=== PATIENT | female | born 1945 | race Caucasian/White ===

== ENCOUNTER 2019-05-27 19:18 | Inpatient (IN) | payer MEDICARE, MEDICAID ==
[~2019-05-27] VITALS: Ht 162.6 cm; Wt 53.1 kg
[~2019-05-27 19:18] MED LIST: ACET325T53 PO; ALLA266C2 TP; ASPI-869 PO; CLOP75TA15 PO; METO25TA20 GT; NITR0.4T SL; OXYC-162 PO; QUET25TA PO; SIMV40TA5 PO; TRAM50TA2 PO; TRIA15CR MC
[2019-05-27 20:00] VITALS: BP 183/87
[2019-05-27] MEDS ORDERED: LORAZEPAM 1 MG TABLET PO PRN (20:00)
[2019-05-27] MEDS ORDERED: MAG HYDROX/AL HYDROX/SIMETH 30 ML UDC PO PRN (20:00)
[2019-05-27] MEDS ORDERED: ACETAMINOPHEN 325 MG TABLET PO PRN (20:00)
[2019-05-27] MEDS ORDERED: TEMAZEPAM 7.5 MG CAPSULE PO PRN (20:00)
[2019-05-27] MEDS ORDERED: MAGNESIUM HYDROXIDE 30 ML UDC PO PRN (20:00)
[2019-05-28] VITALS: BP 151/72
[2019-05-28] MEDS ORDERED: ACETAMINOPHEN 325 MG TABLET PO PRN (01:00)
[2019-05-28] MEDS ORDERED: oxyCODONE/APAP (5/325 MG) 1 UDTAB TABLET PO PRN (01:00)
[2019-05-28 08:00] VITALS: BP 128/56
[2019-05-28] MEDS: METOPROLOL TARTRATE 25 MG TABLET GT SCH ×2 (08:48→20:56)
[2019-05-28] MEDS: ASPIRIN EC 325 MG TABLET.DR PO SCH (08:48)
[2019-05-28] MEDS: CLOPIDOGREL BISULFATE 75 MG TABLET PO SCH (08:49)
[2019-05-28] MEDS: SIMVASTATIN 20 MG TABLET PO SCH (18:00)
[2019-05-28] MEDS: ARIPIPRAZOLE 5 MG TABLET PO SCH (20:57)
[2019-05-29] MEDS: CLOPIDOGREL BISULFATE 75 MG TABLET PO SCH (09:00)
[2019-05-29] MEDS: METOPROLOL TARTRATE 25 MG TABLET GT SCH ×2 (09:00→21:00)
[2019-05-29] MEDS: ASPIRIN EC 325 MG TABLET.DR PO SCH (09:00)
[2019-05-29] MEDS ORDERED: Z GUARD REMEDY 2 OZ OINT TP PRN (10:30)
[2019-05-29] MEDS: Z GUARD REMEDY 2 OZ OINT TP SCH (14:20)
[2019-05-29 16:00] VITALS: BP 119/55
[2019-05-29] MEDS: CLOTRIMAZOLE 1% 15 GM TUBE TP SCH (17:00)
[2019-05-29] MEDS: SIMVASTATIN 20 MG TABLET PO SCH (17:36)
[2019-05-29] MEDS: ARIPIPRAZOLE 5 MG TABLET PO SCH (21:45)
[2019-05-30] MEDS: Z GUARD REMEDY 2 OZ OINT TP SCH (08:21)
[2019-05-30] MEDS: CLOTRIMAZOLE 1% 15 GM TUBE TP SCH ×3 (08:22→16:23)
[2019-05-30] MEDS: CLOPIDOGREL BISULFATE 75 MG TABLET PO SCH (08:24)
[2019-05-30] MEDS: METOPROLOL TARTRATE 25 MG TABLET GT SCH ×2 (08:24→21:00)
[2019-05-30] MEDS: ASPIRIN EC 325 MG TABLET.DR PO SCH (08:24)
[2019-05-30 15:13] VITALS: BP 187/76
[2019-05-30] MEDS ORDERED: CLONIDINE HCL 0.3 MG/24H PTWK 1 EA PATCH TD SCH (15:30)
[2019-05-30 16:20] VITALS: BP 187/76
[2019-05-30] MEDS: SIMVASTATIN 20 MG TABLET PO SCH (17:58)
[2019-05-30] MEDS: ARIPIPRAZOLE 5 MG TABLET PO SCH (22:00)
[2019-05-31] MEDS: ASPIRIN EC 325 MG TABLET.DR PO SCH (09:00)
[2019-05-31] MEDS: METOPROLOL TARTRATE 25 MG TABLET GT SCH ×2 (09:00→20:47)
[2019-05-31] MEDS: CLOTRIMAZOLE 1% 15 GM TUBE TP SCH ×3 (09:00→17:00)
[2019-05-31] MEDS: Z GUARD REMEDY 2 OZ OINT TP SCH (09:00)
[2019-05-31] MEDS: CLOPIDOGREL BISULFATE 75 MG TABLET PO SCH (09:00)
[2019-05-31] MEDS: SIMVASTATIN 20 MG TABLET PO SCH (17:30)
[2019-05-31 19:55] VITALS: BP 118/61
[2019-05-31] MEDS: ARIPIPRAZOLE 5 MG TABLET PO SCH (21:45)
[2019-06-01] MEDS: Z GUARD REMEDY 2 OZ OINT TP SCH (08:31)
[2019-06-01] MEDS: ASPIRIN EC 325 MG TABLET.DR PO SCH (08:31)
[2019-06-01] MEDS: CLOTRIMAZOLE 1% 15 GM TUBE TP SCH ×3 (08:31→16:16)
[2019-06-01] MEDS: CLOPIDOGREL BISULFATE 75 MG TABLET PO SCH (08:31)
[2019-06-01] MEDS: METOPROLOL TARTRATE 25 MG TABLET GT SCH ×2 (08:31→21:00)
[2019-06-01] MEDS: SIMVASTATIN 20 MG TABLET PO SCH (17:20)
[2019-06-01] MEDS: ARIPIPRAZOLE 5 MG TABLET PO SCH (21:19)
[2019-06-02] MEDS: METOPROLOL TARTRATE 25 MG TABLET GT SCH (09:00)
[2019-06-02] MEDS: ASPIRIN EC 325 MG TABLET.DR PO SCH (09:00)
[2019-06-02] MEDS: CLOPIDOGREL BISULFATE 75 MG TABLET PO SCH (09:00)
[2019-06-02] MEDS: CLOTRIMAZOLE 1% 15 GM TUBE TP SCH ×2 (09:32→09:33)
[2019-06-02] MEDS: Z GUARD REMEDY 2 OZ OINT TP SCH (09:33)
== END 2019-06-02 13:15 | disposition home or self-care (01) | DRG 885 ==
LOC: GPS 19:25
PROVIDERS: ADMIT Psychiatry & Neurology Psychosomatic Medicine; ATTEND Student in an Organized Health Care Education/Training Program
DX: F25.0 Schizoaffective disorder, bipolar type (principal); F01.50 Vascular dementia, unspecified severity, without behavioral disturbance, psychotic disturbance, mood disturbance, and anxiety; D84.9 Immunodeficiency, unspecified; F29 Unspecified psychosis not due to a substance or known physiological condition; F41.9 Anxiety disorder, unspecified; Z88.1 Allergy status to other antibiotic agents; Z88.2 Allergy status to sulfonamides; I10 Essential (primary) hypertension; E78.5 Hyperlipidemia, unspecified; I25.2 Old myocardial infarction; Z91.14 Patient's other noncompliance with medication regimen; B35.3 Tinea pedis; B35.1 Tinea unguium
CPT/HCPCS: 97116-TC; 97530-TC

== ENCOUNTER 2019-06-02 15:41 | Emergency (ER) | payer MEDICARE, MEDICAID ==
[~2019-06-02] VITALS: Ht 162.6 cm; Wt 53.1 kg
[2019-06-02 15:41] VITALS: BP 135/77
--- NOTE | 2019-06-02 15:58 | NUR ---
PATIENT RESTING INSIDE ROOM. AWAKE, ALERT AND ORIENTED X 3, NO ACUTE DISTRESS. DENIES ANY PAIN OR DISCOMFORT. PATIENT AMBULATORY. RESTING COMFORTABLY ON BED
[2019-06-02 16:19] LABS: BASOPHILS # (AUTO) 0.1 /CMM (0.0-0.2); BASOPHILS % (AUTO) 0.7 % (0.0-2.0); EOSINOPHILS % (AUTO) 1.4 % (0.0-6.0); HEMATOCRIT 40 % (33-45); LYMPHOCYTES # (AUTO) 1.8 /CMM (0.8-4.8); LYMPHOCYTES % (AUTO) 15.6 % (20.0-44.0); MEAN CORPUSCULAR HGB CONC 32 g/dl (31.0-36.0); MEAN CORPUSCULAR VOLUME 86 fL (82-100); MONOCYTES # (AUTO) 0.6 /CMM (0.1-1.30); MONOCYTES % (AUTO) 5.4 % (2.0-12.0); NEUTROPHILS # (AUTO) 8.9 /CMM (1.8-8.9); NEUTROPHILS % (AUTO) 76.9 % (43.0-81.0); PLATELET COUNT (AUTO) 358 /CMM (150-450); RED BLOOD CELL COUNT(AUTO) 4.69 MIL/uL (4.0-5.2); WHITE BLOOD COUNT (AUTO) 11.6 K/uL (4.3-11.0)
[2019-06-02 16:25] LABS: CALCIUM, SERUM 9.2 mg/dL (8.5-10.1); CARBON DIOXIDE 30 mmol/L (21-32); CHLORIDE 105 mmol/L (98-107); CREATININE 1.2 mg/dL (0.6-1.3); GLUCOSE 161 mg/dL (74-106); POTASSIUM 4.2 mmol/L (3.5-5.1); SODIUM SERUM 143 mmol/L (136-145); UREA NITROGEN, BLOOD 40 mg/dL (7-18)
[2019-06-02 16:28] LABS: APPEARANCE,URINE Slightly Cloudy (CLEAR); BILIRUBIN,URINE Negative (NEGATIVE); BLOOD, URINE Negative Ery/uL (NEGATIVE); COLOR,URINE Yellow (YELLOW); KETONES,URINE Negative (NEGATIVE); LEUKOCYTE ESTERASE ,URINE Small (NEGATIVE); NITRITE, URINE Negative (NEGATIVE); PH,URINE 6.5 (5.0-8.0); PROTEIN,URINE 30 mg/dl (NEGATIVE); UGLUCOSE Negative (NEGATIVE); UROBILINOGEN,URINE 0.2 EU/dL (0.2)
[2019-06-02 16:31] LABS: ALANINE AMINOTRANSFERASE 41 U/L (12-78); ALBUMIN 3.8 g/dL (3.4-5.0); ALCOHOL, BLOOD < 3 mg/dL (0-0); ALKALINE PHOSPHATASE 115 U/L (46-116); ASPARTATE AMINOTRANSFERASE 24 U/L (15-37); BILIRUBIN,DIRECT 0.1 mg/dL (0.0-0.2); BILIRUBIN,TOTAL 0.4 mg/dL (0.2-1.0); TOTAL PROTEIN, SERUM 7.5 g/dL (6.4-8.2)
[2019-06-02 16:32] LABS: ACETAMINOPHEN 0 ug/ml (10-30); SALICYLATE 1.7 mg/dL (2.8-20.0)
[2019-06-02 16:44] LABS: BACTERIA,URINE Moderate /HPF (None Seen); RBC,URINE 0-2 /HPF (0-2); SQUAMOUS EPITHELIAL CELL,UR Many /HPF (None Seen)
--- NOTE | 2019-06-02 17:01 | NUR ---
ENCINO TRANSFER INFO:DIRECT ADMIT TO GPS ROOM 141-B, NUMBER FOR REPORT [phone]
--- NOTE | 2019-06-02 18:35 | NUR ---
PLACED CALL TO [facility] AND SPOKE WITH PAOLA PEREZ AND GAVE REPORT
--- NOTE | 2019-06-02 18:38 | NUR ---
PATIENT RESTING INSIDE ROOM. AWAKE, ALERT AND ORIENTED, AMBULATORY, NO ACUTE DISTRESS. DENIES ANY PAIN OR DISCOMFORT. WILL CONTINUE TO MONITOR
--- NOTE | 2019-06-02 19:23 | NUR ---
REPORT GIVEN TO VALERIE PEREZ FOR KEE
--- NOTE | 2019-06-02 19:28 | NUR ---
PT REFUSED EKG.
--- NOTE | 2019-06-02 19:52 | NUR ---
report given to EMT. Pt being transfered to [facility]. Rm 141
--- NOTE | 2019-06-02 19:52 | NUR ---
ekg not done. pt refused.
== END 2019-06-02 19:59 ==
LOC: ER 15:41
DX: R45.1 Restlessness and agitation (principal); F29 Unspecified psychosis not due to a substance or known physiological condition; I10 Essential (primary) hypertension; E11.9 Type 2 diabetes mellitus without complications; Z90.89 Acquired absence of other organs; Z79.82 Long term (current) use of aspirin; Z88.2 Allergy status to sulfonamides; Z88.1 Allergy status to other antibiotic agents
CPT/HCPCS: 36415; 80048; 80076; 80307; 81001; 85025; 87086; 93005; 99285; G0480; 80305; 81000-TC

== ENCOUNTER 2019-06-19 12:59 | Emergency (ER) | payer MEDICARE, MEDICAID ==
[~2019-06-19] VITALS: Ht 160 cm; Wt 56.7 kg
--- NOTE | 2019-06-19 13:10 | NUR ---
BAILEE FROM THE STREET C/O R ARM PAIN, PT JUST GOT DISCHARGED AT [facility]. STATES SHE IS UNABLE TO MOVE ARM, PAIN IS 6/10. TO ER BED 7, COMFORTABLE AND READY FOR EVAL.
--- NOTE | 2019-06-19 14:12 | NUR ---
PT GIVEN SANDWICH AND JUICE. OK PER VIDEO GAME CREATOR
--- NOTE | 2019-06-19 14:27 | NUR ---
ELODIA LAGUNAS AT BEDSIDE FOR EVAL
--- NOTE | 2019-06-19 14:45 | NUR ---
Social service consult requested by doctor for homelessness. Pt. is a 74 year old female who came to [facility] complaining of nontraumatic right arm pain for an unknown amount of time. She states she was discharged from [facility] and placed in a local motel but was unwilling to stay there, so she called 911. ELOIDA along with case technician Liana and RN Rolan met with pt. bedside. Pt. is alert and oriented x 4. Pt. appears disheveled. Pt. had her belongings with her. Pt. is ambulatory. Pt. stated she wants to go back to [facility]. SW informed pt. that she is here at [facility] and will not be able to be discharged or sent back to [facility] since she is being provided care here. Pt. understood. Pt. has three checks worth $900 with her. SW offered pt. independent living placement. Initially, pt. declined, however later accepted when SW informed her she can try to find her in [place] as per her request. income tax manager Liana spoke with Yen at [facility] independent living and pt. was accepted to go to [address] [place] [address], in [facility] [address]. SW updated pt. about the independent living and pt. accepted to be discharged there. Pt. has extensive psychiatric history and hospitalizations. However, currently pt. denies suicidal/homicidal ideation, and auditory and visual hallucinations. Pt. denies alcohol/drug/tobacco use. Pt. to be discharged to [address] [place] [address] [address] [facility] [address] via taxi. Homeless Patient Waiver form was signed by the pt. Pt. refused all other homeless resources. .
--- NOTE | 2019-06-19 14:51 | NUR ---
Patient discharged to home in stable condition. Written and verbal after care instructions given. Patient verbalizes understanding of instruction. AWAITING TAXI VOUCHER
--- NOTE | 2019-06-19 14:57 | NUR ---
OFFERED FOR PT TO WAIT IN WAITING ROOM FOR VOUCHER. PT ACCEPTED
[2019-06-19 15:13] VITALS: BP 143/86
== END 2019-06-19 15:15 | disposition home or self-care (01) ==
LOC: ER 13:00
DX: S40.021A Contusion of right upper arm, initial encounter (principal); I10 Essential (primary) hypertension; E11.9 Type 2 diabetes mellitus without complications; Z90.89 Acquired absence of other organs; Z88.2 Allergy status to sulfonamides; Z88.1 Allergy status to other antibiotic agents; Z79.899 Other long term (current) drug therapy; Z79.82 Long term (current) use of aspirin; X58.XXXA Exposure to other specified factors, initial encounter; Y93.89 Activity, other specified; Y92.89 Other specified places as the place of occurrence of the external cause; Y99.8 Other external cause status
CPT/HCPCS: 73060-TC

== ENCOUNTER 2019-07-17 07:27 | Emergency (ER) | payer MEDICARE, MEDICAID ==
[~2019-07-17] VITALS: Ht 167.6 cm; Wt 57.2 kg
--- NOTE | 2019-07-17 07:37 | NUR ---
MARKEL CASTELLANOS878 From Bus Bench "Walker rolled on side -Fall hurt R side/hip/leg. AA/OX3, BREATHING EVEN AND UNLABORED, NO SOB NOTED. KEPT COMFORTABLE. ATTACHED TO THE MONITOR, CHANGED INTO GOWN. NEEDS ATTENDED, WILL MONITOR. WAITING FOR MD SCHOFIELD.
--- NOTE | 2019-07-17 08:41 | NUR ---
SEEN BY TOBACCO SORTER JANNETH.
--- NOTE | 2019-07-17 09:41 | NUR ---
Social service consult requested by Dr. Mars for homelessness. Pt. is a 74 year old female who was brought to [facility] for ground level fall. SW met with pt. bedside. Pt. is alert and oriented x 4. SW is familiar with pt. from previous ED visit. P's mood is congruent. Pt. is pleasant and cooperative with SW during the assessment. Pt. has a history of Bipolar Disorder and has a history of psychiatric hospitalizations. Pt. states she is homeless by choice. Pt. usually stays in motels but refuses placement in a Board and Care facility or half-way. SW offered pt. placement, however pt. declined stating she prefers to be on the streets and sleeps on the bus because " they run all night." Pt. receives over $1000/ month of SSI and has approximately over $1000 in checks with her. Pt. is refusing to go to a motel as well. Pt. states she is able to manage herself on the streets. Pt. states she eats at [employer] and cleans herself by using the sink in bathrooms. Pt. denies any suicidal and homicidal ideations and visual/auditory hallucinations at this time. Pt. ambulates with a walker. Pt. will be provided with a TAP card. Homeless Patient waiver form was signed by the pt. and placed in pt's chart. No other social service needs are requested at this time. Dr. Mars has been updated with pt's discharge plan.
--- NOTE | 2019-07-17 09:58 | NUR ---
Patient given written and verbal discharge instructions. Patient verbalizes understanding of instructions. Patient is ambulatory with steady gait. Refuses offer of senior living placement. Patient given list of available shelters in surrounding area. Patient ambulatory with walker. Denies pain or discomfort.
--- NOTE | 2019-07-17 09:59 | NUR ---
Patient has clothes, given snacks and a tap card.
[2019-07-17 10:00] VITALS: BP 138/78
== END 2019-07-17 10:01 | disposition home or self-care (01) ==
LOC: ER 07:30
DX: S70.01XA Contusion of right hip, initial encounter (principal); S80.01XA Contusion of right knee, initial encounter; I10 Essential (primary) hypertension; E11.9 Type 2 diabetes mellitus without complications; F29 Unspecified psychosis not due to a substance or known physiological condition; F31.9 Bipolar disorder, unspecified; R45.1 Restlessness and agitation; R32 Unspecified urinary incontinence; Z90.89 Acquired absence of other organs; Z59.0 Homelessness; Z88.2 Allergy status to sulfonamides; Z79.82 Long term (current) use of aspirin; Z88.1 Allergy status to other antibiotic agents; W18.39XA Other fall on same level, initial encounter; Y93.89 Activity, other specified; Y92.89 Other specified places as the place of occurrence of the external cause; Y99.8 Other external cause status
CPT/HCPCS: 73502; 73564-TC

== ENCOUNTER 2019-10-30 18:36 | Emergency (ER) | payer MEDICAID, MEDICARE ==
[~2019-10-30] VITALS: Ht 162.6 cm; Wt 56.7 kg
[~2019-10-30 18:36] MED LIST changes: +SIMV-49 PO; -SIMV40TA5 PO
--- NOTE | 2019-10-30 18:43 | NUR ---
BIB RA 878 IN A SITTING POSITION FROM A BUS STOP BENCH, C/O CHRONIC R LEG PAIN, WORSE TODAY, PT ON MONITOR, VSS ,NAD NOTED, PENDING MD SCHOFIELD
[2019-10-30] MEDS ORDERED: PIPERACILLIN /TAZOBACTAM 3.375 G in IV D5W 50 ML IV ONE (20:30)
[2019-10-30] MEDS ORDERED: VANCOMYCIN 1 GM in IV D5W 250 ML IV ONE (20:30)
[2019-10-30 20:31] LABS: BASOPHILS # (AUTO) 0.1 /CMM (0.0-0.2); BASOPHILS % (AUTO) 1.2 % (0.0-2.0); EOSINOPHILS % (AUTO) 1.6 % (0.0-6.0); HEMATOCRIT 37 % (33-45); HEMOGLOBIN 12.2 g/dL (11.5-14.8); LYMPHOCYTES # (AUTO) 2.2 /CMM (0.8-4.8); LYMPHOCYTES % (AUTO) 21.2 % (20.0-44.0); MEAN CORPUSCULAR HGB CONC 33 g/dl (31.0-36.0); MEAN CORPUSCULAR VOLUME 87 fL (82-100); MONOCYTES # (AUTO) 0.7 /CMM (0.1-1.30); MONOCYTES % (AUTO) 6.9 % (2.0-12.0); NEUTROPHILS # (AUTO) 7.3 /CMM (1.8-8.9); NEUTROPHILS % (AUTO) 69.1 % (43.0-81.0); PLATELET COUNT (AUTO) 357 /CMM (150-450); WHITE BLOOD COUNT (AUTO) 10.6 K/uL (4.3-11.0)
--- NOTE | 2019-10-30 20:33 | NUR ---
CALLED FOR MS BED
[2019-10-30 20:48] LABS: CALCIUM, SERUM 8.9 mg/dL (8.5-10.1); CREATININE 1.2 mg/dL (0.6-1.3); POTASSIUM 3.7 mmol/L (3.5-5.1)
--- NOTE | 2019-10-30 21:07 | NUR ---
BED 306-2 MS
--- NOTE | 2019-10-30 21:13 | NUR ---
PT REFUSED ALL TREATMET, ELIZABETH GARCIA AWARE.
[2019-10-30] MEDS ORDERED: IV NS 0.9% 1,000 ML BAG IV ONE (21:30)
[2019-10-30 22:01] VITALS: BP 132/75
--- NOTE | 2019-10-30 23:38 | NUR ---
Patient does not wish to proceed with medical care recommended by Michael GARCIA Patient given information related to possible complications, up to and including , which could occur as a result of leaving the hospital at this time. Patient verbalizes understanding of risks involved due to leaving against medical advice. Patient has signed AMA form. Patient given written and verbal discharge instructions. Patient verbalizes understanding of instructions. Patient is ambulatory with steady gait. Refuses offer of correction placement. Patient given list of available shelters in surrounding area.
[2019-10-31] MEDS ORDERED: PIPERACILLIN /TAZOBACTAM 4.5 G in IV D5W 50 ML IV SCH ×2
== END 2019-10-30 23:40 | disposition left against medical advice (07) ==
LOC: ER 18:41 → MED 21:06 → UNDOADMIN 21:06
DX: L03.116 Cellulitis of left lower limb (principal); L03.115 Cellulitis of right lower limb; B35.3 Tinea pedis; B35.1 Tinea unguium; I10 Essential (primary) hypertension; E11.9 Type 2 diabetes mellitus without complications; Z59.0 Homelessness; Z90.89 Acquired absence of other organs; Z88.2 Allergy status to sulfonamides; Z88.1 Allergy status to other antibiotic agents; Z60.2 Problems related to living alone; Z79.899 Other long term (current) drug therapy; Z79.82 Long term (current) use of aspirin
CPT/HCPCS: 36415; 80048; 85025; 99283; J2543; J7060; G0378

== ENCOUNTER 2020-02-09 12:26 | Inpatient (IN) | payer MEDICARE, OTHER ==
[~2020-02-09] VITALS: Ht 162.6 cm; Wt 57.2 kg
--- NOTE | 2020-02-09 12:38 | NUR ---
[id number] [facility] C/O R FOOT PAIN FOR "MONTHS". REPORTS PAIN LEVEL 6/10. PREVIOUSLY TREATED WITH ANTIBIOTIC AT [facility] FOR 2 DAYS. AMB WITH WALKER. PT IS CALM AND COOPERATIVE. STATES SHE IS "BLIND", BUT ABLE TO SEE CLOSE UP. ON MONITOR, MADE COMFORTABLE, READY FOR EVAL.
--- NOTE | 2020-02-09 12:41 | NUR ---
DR SALDAÑA AT BEDSIDE FOR EVAL.
[2020-02-09] MEDS ORDERED: VANCOMYCIN 1 GM VIAL ONE (12:48)
[2020-02-09] MEDS ORDERED: VANCOMYCIN HCL 1 GM in IV D5W 260 ML IV ONE (13:00)
[2020-02-09 13:26] LABS: BASOPHILS # (AUTO) 0.1 /CMM (0.0-0.2); BASOPHILS % (AUTO) 1.2 % (0.0-2.0); EOSINOPHILS % (AUTO) 1.7 % (0.0-6.0); HEMATOCRIT 38 % (33-45); HEMOGLOBIN 12.5 g/dL (11.5-14.8); LYMPHOCYTES # (AUTO) 1.9 /CMM (0.8-4.8); MEAN CORPUSCULAR HGB CONC 33 g/dl (31.0-36.0); MEAN CORPUSCULAR VOLUME 87 fL (82-100); MONOCYTES # (AUTO) 0.5 /CMM (0.1-1.30); MONOCYTES % (AUTO) 6.4 % (2.0-12.0); NEUTROPHILS # (AUTO) 5.8 /CMM (1.8-8.9); NEUTROPHILS % (AUTO) 68.7 % (43.0-81.0); PLATELET COUNT (AUTO) 339 /CMM (150-450); WHITE BLOOD COUNT (AUTO) 8.5 K/uL (4.3-11.0)
--- NOTE | 2020-02-09 13:27 | NUR ---
URINE COLLECTED AND SENT TO STAT LAB
--- NOTE | 2020-02-09 13:30 | NUR ---
TECH AND FABRIC NORMALIZER AT BEDSIDE TO CLEAN PT
[2020-02-09 13:33] LABS: APPEARANCE,URINE Clear (CLEAR); BILIRUBIN,URINE Negative (NEGATIVE); BLOOD, URINE Trace-lysed Ery/uL (NEGATIVE); COLOR,URINE Yellow (YELLOW); KETONES,URINE Negative (NEGATIVE); LEUKOCYTE ESTERASE ,URINE Small (NEGATIVE); NITRITE, URINE Positive (NEGATIVE); PROTEIN,URINE Trace mg/dl (NEGATIVE); UGLUCOSE Negative (NEGATIVE); UROBILINOGEN,URINE 0.2 EU/dL (0.2)
[2020-02-09 13:35] LABS: CALCIUM, SERUM 8.8 mg/dL (8.5-10.1)
[2020-02-09 13:38] LABS: BACTERIA,URINE 2+ /HPF (None Seen); RBC,URINE 0-2 /HPF (0-2); SQUAMOUS EPITHELIAL CELL,UR Few /HPF (None Seen)
--- NOTE | 2020-02-09 13:39 | NUR ---
PT EXPERIENCED REDNESS AND ITCHING AFTER START OF ANTIBIOTIC. MD NOTIFIED.
--- NOTE | 2020-02-09 13:41 | NUR ---
PER MD VERBAL ORDER, ADJUSTED MED RATE TO 100ML/HR. PT PEDRO WELL.
[2020-02-09 13:43] LABS: ALBUMIN 3.5 g/dL (3.4-5.0); BILIRUBIN,DIRECT 0.1 mg/dL (0.0-0.2); BILIRUBIN,TOTAL 0.3 mg/dL (0.2-1.0); TOTAL PROTEIN, SERUM 7.4 g/dL (6.4-8.2)
--- NOTE | 2020-02-09 14:15 | NUR ---
PT ASLEEP IN BED. EASILY AROUSED, VSS. WILL CONT TO MONITOR.
--- NOTE | 2020-02-09 14:48 | NUR ---
REPORT GIVEN TO CHRIS LEON FOR 306-2 MS
--- NOTE | 2020-02-09 15:14 | NUR ---
PT [facility]SF[facility]
[2020-02-09] MEDS ORDERED: IV NS 0.9% 1,000 ML IV PRN (15:43)
[2020-02-09 16:00] VITALS: BP 144/79
[2020-02-09] MEDS ORDERED: Z GUARD REMEDY 2 OZ OINT TP PRN (16:00)
[2020-02-09] MEDS ORDERED: ACETAMINOPHEN 325 MG TABLET PO PRN (16:00)
[2020-02-09] MEDS ORDERED: ZOLPIDEM TARTRATE 5 MG TABLET PO PRN (16:00)
[2020-02-09] MEDS ORDERED: HYDROCODONE/APAP 5/325MG 1 EACH TABLET PO PRN (16:00)
[2020-02-09] MEDS ORDERED: MAG HYDROX/AL HYDROX/SIMETH 30 ML UDC PO PRN (16:00)
[2020-02-09] MEDS ORDERED: MAGNESIUM HYDROXIDE 30 ML UDC PO PRN (16:00)
[2020-02-09] MEDS ORDERED: ONDANSETRON HCL/PF 4 MG/2 ML VIAL IVP PRN (16:00)
--- NOTE | 2020-02-09 16:00 | NUR ---
ms rn admitted a new admission, 75 year od female, came in w/ dx of left foot cellulitis, awake,alert,oriented x4,not in any form of distress, respirations even and unlabored,no sob noted, lungs are diminish, abdomen soft,positive bowel sounds,denies pain at this time,all needs attended.will monitor patient.
[2020-02-09] MEDS ORDERED: FEE PK DOSING 1 MIN EA MC ONE (16:25)
--- NOTE | 2020-02-09 18:00 | NUR ---
ms rn asessment done patient refused to take picture at the groin area, all needs attended.
--- NOTE | 2020-02-09 19:15 | NUR ---
RN Notes Patient awake, alert and oriented x3, on room air and tolerated well. Per patient she is blind, able to see close up. Right foot redness with maceration between the toes noted, pain at tolerable level at this time 4/10. Both lower extremity elevated on pillows. Sacral redness and perineal redness noted, patient refused photos to be taken. IV access on right hand patent and intact. Plan of care and fall prevention discussed with the patient and verbalized understanding. Safety measures in place with call light within reach. Will continue to monitor.
[2020-02-09 19:22] VITALS: BP 133/69
[2020-02-09 20:32] VITALS: BP 160/70
--- NOTE | 2020-02-10 05:56 | NUR ---
RN Notes Patient stable overnight, afebrile. Denies any pain and discomfort. Patient refused for IVF and declined pain medication, she just want the IV ATB for her right foot. Fall precaution observed. All needs attended. Will endorsed accordingly.
[2020-02-10 06:34] LABS: BASOPHILS # (AUTO) 0.1 /CMM (0.0-0.2); BASOPHILS % (AUTO) 0.8 % (0.0-2.0); EOSINOPHILS % (AUTO) 3.4 % (0.0-6.0); HEMATOCRIT 35 % (33-45); HEMOGLOBIN 11.8 g/dL (11.5-14.8); LYMPHOCYTES # (AUTO) 1.8 /CMM (0.8-4.8); LYMPHOCYTES % (AUTO) 25.6 % (20.0-44.0); MEAN CORPUSCULAR HGB CONC 34 g/dl (31.0-36.0); MEAN CORPUSCULAR VOLUME 86 fL (82-100); MONOCYTES # (AUTO) 0.5 /CMM (0.1-1.30); MONOCYTES % (AUTO) 6.6 % (2.0-12.0); NEUTROPHILS # (AUTO) 4.5 /CMM (1.8-8.9); NEUTROPHILS % (AUTO) 63.6 % (43.0-81.0); PLATELET COUNT (AUTO) 311 /CMM (150-450); RED BLOOD CELL COUNT(AUTO) 4.09 MIL/uL (4.0-5.2); WHITE BLOOD COUNT (AUTO) 7.2 K/uL (4.3-11.0)
[2020-02-10 07:05] LABS: ALBUMIN 3.1 g/dL (3.4-5.0); BILIRUBIN,TOTAL 0.3 mg/dL (0.2-1.0); CALCIUM, SERUM 8.4 mg/dL (8.5-10.1); CREATININE 1.2 mg/dL (0.6-1.3); TOTAL PROTEIN, SERUM 6.3 g/dL (6.4-8.2)
--- NOTE | 2020-02-10 07:20 | NUR ---
RN OPENING NOTE PT WAS RECEIVED IN BED AT LOWEST AND LOCKED POSITION WITH SIDE RAILS UP X2, A/O X3 NOTED TO BE LEGALLY BLIND BUT ABLE TO SEE CLOSE UP, BREATHING EVEN AND UNLABORED ON RA WITH NO S/S OF ANY DISTRESS OR PAIN NOTED AT THIS TIME, PER NIGHT RN PT REFUSED IVF AND PAIN MEDS, DIAPER IN PLACE, NOTED TO BE AMBULATORY WITH FWW, IV IS PATENT AND INTACT, AWAITING PSYCH AND PODIATRY CONSULT, SAFETY PRECAUTIONS IN PLACE, CALL LIGHT IN REACH, WILL MONITOR ACCORDINGLY
[2020-02-10 08:00] VITALS: BP 143/59
--- NOTE | 2020-02-10 10:00 | NUR ---
WOUND CARE CONSULT: PT PRESENTS WITH CRUSTED WOUNDS TO RT DORSAL FOOT AND GREAT TOE, PRESENT ON ADMISSION. RECOMMEND DPM CONSULT. DR PALOMINO NOTIFIED OF CONSULT REQUEST. PT IS INDEPENDENT WITH BED MOBILITY BUT IS INCONTINENT. DISCUSSED SKIN PROTECTION WITH NURSING STAFF. WILL SEE PRN. SEVERINO IN AGREEMENT WITH PLAN OF CARE. Addendum: 02/10/20 at 1002 by SARAH SHEN WNDNU Amended: Links added.
--- NOTE | 2020-02-10 10:08 | NUR ---
RN NOTE INFORMED BY WOUND CARE NURSE SARAH THAT WAS NOTIFIED OF CONSULT REQUEST AT THIS TIME
[2020-02-10] MEDS: VANCOMYCIN 1 GM in IV D5W 250 ML IV SCH (12:02)
--- NOTE | 2020-02-10 12:50 | NUR ---
RN NOTE PER PT REFUSED TO TALK TO HIM AND REFUSED PSYCH CONSULT AT THIS TIME
[2020-02-10 16:00] VITALS: BP 130/69
--- NOTE | 2020-02-10 18:24 | NUR ---
RN CLOSING NOTE PT IN BED AT LOWEST AND LOCKED POSITION WITH SIDE RAILS UP X2, A/O X3, BREATHING EVEN AND UNLABORED ON RA WITH NO DISTRESS OR PAIN NOTED THIS TIME, AMBULATORY WITH FWW, IV IS PATENT AND INTACT, AWAITING PODIATRY CONSULT, SAFETY PRECAUTIONS IN PLACE, CALL LIGHT IN REACH, ALL NEEDS ATTENDED TO, WILL ENDORSE TO NIGHT RN FOR KEE.
[2020-02-10 19:30] VITALS: BP 138/75
--- NOTE | 2020-02-10 19:36 | NUR ---
MS RN NOTES PATIENT IN SITTING EDGE OF BED, AWAKE, ALERT AND ORIENTED X 3. PATIENT APPEARS ANXIOUS. BREATHING EVEN AND UNLABORED ON ROOM AIR. SHOWS NO SIGNS OF ACUTE RESPIRATORY DISTRESS, NO ACUTE PAIN. IV ON R HAND 20G SHOWS NO SIGNS OF INFILTRATION, NO REDNESS. ITS CLEAN DRY AND INTACT. SAFETY PRECAUTIONS IN PLACE. BED IN LOWEST POSITION, LOCKED, AND CALL LIGHT KEPT WITHIN REACH. WILL CONTINUE TO MONITOR.
[2020-02-10 20:00] VITALS: BP 138/75
--- NOTE | 2020-02-10 20:56 | NUR ---
PATIENT REFUSED TO DO ARTERIAL LOWER EXT AND DUPEX VENOUS LOWER EXT. SHE SAID SHE HAVE DONE THESE TESTES 6 WEEKS AGO IN ANOTHER HOSPITAL. CHARGE NURSE TAMICA IS AWARE.
[2020-02-11 06:41] LABS: CALCIUM, SERUM 8.6 mg/dL (8.5-10.1); CREATININE 1.2 mg/dL (0.6-1.3)
--- NOTE | 2020-02-11 06:41 | NUR ---
MS RN NOTES PATIENT IN BED, ASLEEP, ALERT AND ORIENTED X 3. BREATHING EVEN AND UNLABORED ON ROOM AIR. SHOWS NO SIGNS OF ACUTE RESPIRATORY DISTRESS, NO ACUTE PAIN. IV ON R HAND 20G SHOWS NO SIGNS OF INFILTRATION, NO REDNESS. ITS CLEAN DRY AND INTACT. ALL DUE MEDICATIONS GIVEN. SAFETY PRECAUTIONS IN PLACE. BED IN LOWEST POSITION, LOCKED, AND CALL LIGHT KEPT WITHIN REACH. WILL ENDORSE TO ONCOMING NURSE.
--- NOTE | 2020-02-11 07:44 | NUR ---
rn opening notes Patient received on room air, no sob noted, patient denies pain at this time. regular diet at this time with R hand 20 gauge. patient refused x ray this AM, per report patient have been refusing a lot of procedures. Bed at the lowest setting, call light within reach, side rails up x2.
[2020-02-11] MEDS: CADEXOMER IODINE 40 GM TUBE TP SCH (08:23)
[2020-02-11 09:00] VITALS: BP 135/60
--- NOTE | 2020-02-11 10:24 | NUR ---
NET FRONT END DEVELOPER RIGHT FOOT WOUND TREATMENT ORDERS CLARIFIED WITH DPM. DISCUSSED WITH NURSING STAFF.
[2020-02-11] MEDS: DAKINS QUARTER STRENGTH (0.125%) 480 ML BOTTLE TOP SCH (10:30)
[2020-02-11] MEDS: VANCOMYCIN 1 GM in IV D5W 250 ML IV SCH (12:47)
--- NOTE | 2020-02-11 15:32 | NUR ---
RN NOTES Patient has a temp of 99.4 , patient was offered tylenol but refused and stated that she does not want any medications.
[2020-02-11 16:00] VITALS: BP 140/59
--- NOTE | 2020-02-11 18:20 | NUR ---
rn closing notes Patient remains on room air, no sob noted, patient denies pain at this time and refuses medication except IV abx and abx cream. Legally blind but is able to walk with good balance. Bed at the lowest setting, call light within reach, side rails up x2. Will give report to NOC RN for KEE bedside.
--- NOTE | 2020-02-11 19:42 | NUR ---
MS RN OPENING NOTES PATIENT AWAKE AND RESTING IN BED. A/OX3. ABLE TO VERBALIZE NEEDS. PATIENT DENIES ANY SOB OR PAIN AT THIS TIME. IV PRESENT ON RIGHT HAND, SIZE 20, INTACT & PATENT, HEP LOCKED. SAFETY MEASURES IN PLACE. BED LOCKED, SIDE RAILS X2, CALL LIGHT WITHIN REACH. WILL CONTINUE TO MONITOR.
[2020-02-11 20:00] VITALS: BP 153/68
--- NOTE | 2020-02-12 05:30 | NUR ---
MS RN NOTES PATIENT REFUSED AM LABS
--- NOTE | 2020-02-12 07:25 | NUR ---
MS RN CLOSING NOTES PATIENT SLEEPING IN BED, EASY TO AWAKEN. A/OX3. NO S/S OF ANY DISTRESS. SAFETY MEASURES IN PLACE. BED LOCKED, SIDE RAILS X2, CALL LIGHT WITHIN REACH. WILL ENDORSE TO DAY SHIFT NURSE TO FOLLOW PLAN OF CARE.
--- NOTE | 2020-02-12 08:00 | NUR ---
m/s primer press operator: notes pt refused blood draw despite teaching and education provided on the purpose of lab works.
[2020-02-12 08:32] VITALS: BP 143/54
--- NOTE | 2020-02-12 09:00 | NUR ---
m/s salvage mechanic: dpm f/u seen by dr. ferro, pt refused bedside debridement per md.
--- NOTE | 2020-02-12 09:20 | NUR ---
m/s technical specialist cytogenetics: md visit seen and examined by dr. hunter with order to d'c to snf. order acknowledged. case management making arrangement. pt aware
--- NOTE | 2020-02-12 09:30 | NUR ---
m/s stock transfer clerk: notes pt refused bed bath or shower when offered by staff.
--- NOTE | 2020-02-12 10:00 | NUR ---
m/s ronald: notes dr. hunter still here and ask md if he wants us to start her on clindamycin here, iv is infiltrated and doesn't want another iv insertion. per they can start po antibiotic at [facility]. no new order. Addendum: 02/12/20 at 1327 by JUSTIN HOWELL WEB DESIGN INTERN h/l removed with tip intact.
[2020-02-12] MEDS: CADEXOMER IODINE 40 GM TUBE TP SCH (10:30)
[2020-02-12] MEDS: DAKINS QUARTER STRENGTH (0.125%) 480 ML BOTTLE TOP SCH (10:30)
--- NOTE | 2020-02-12 10:30 | NUR ---
m/kristy cardenas: notes case management called and informed me that pt is leaving around 2pm. pt made aware. pt allowed nurse to do photos on foot, but refused to have tx done and removed the existing iodosorb, stated, "it doesn't work, whatever you guys doing." Addendum: 02/12/20 at 1059 by JUSTIN HOWELL LVN pt refused full body assessment
--- NOTE | 2020-02-12 11:40 | NUR ---
m/s technical information specialist: notes report given to lucien (rn) at [facility] for continuity of care. eta at 1430.
[2020-02-12] MEDS: VANCOMYCIN 1 GM in IV D5W 250 ML IV SCH (13:00)
--- NOTE | 2020-02-12 13:00 | NUR ---
m/s movie projectionist: notes pt for d'c to snf this afternoon, to start on clindamycin po at snf. pt has no iv access, pt refused new iv insertion. aware.
--- NOTE | 2020-02-12 13:30 | NUR ---
m/s casting chipper: notes verbal discharge instructions given to pt due to pt being legally blind and pointed where pt need to sign. pt verbalized understanding. awaiting for ambulance to cook pickled meat pt.
--- NOTE | 2020-02-12 14:45 | NUR ---
m/s flame hardener: notes ambulance here to strip picker the pt and report given to one of the crew.
--- NOTE | 2020-02-12 15:10 | NUR ---
m/s information technology officer: discharged discharged to snf via ambulance in stable condition with all valuables.
== END 2020-02-12 15:15 | DRG 603 ==
LOC: ER 12:30 → MED 14:43
PROVIDERS: ADMIT Internal Medicine; ATTEND Nurse Practitioner Acute Care
DX: L03.115 Cellulitis of right lower limb (principal); I10 Essential (primary) hypertension; E78.5 Hyperlipidemia, unspecified; E11.9 Type 2 diabetes mellitus without complications; Z59.0 Homelessness; Z91.14 Patient's other noncompliance with medication regimen; Z79.82 Long term (current) use of aspirin; Z79.02 Long term (current) use of antithrombotics/antiplatelets; R32 Unspecified urinary incontinence; R26.9 Unspecified abnormalities of gait and mobility; F31.9 Bipolar disorder, unspecified; Z88.3 Allergy status to other anti-infective agents; Z88.2 Allergy status to sulfonamides; Z79.899 Other long term (current) drug therapy; Z86.59 Personal history of other mental and behavioral disorders; B35.1 Tinea unguium; H54.8 Legal blindness, as defined in USA; L97.519 Non-pressure chronic ulcer of other part of right foot with unspecified severity; F29 Unspecified psychosis not due to a substance or known physiological condition; Z98.890 Other specified postprocedural states
CPT/HCPCS: 36415; 80048-TC; 80053-TC; 80061-TC; 80076-TC; 80202-TC; 81000-TC; 83735-TC; 84100-TC; 85025-TC; 87040-TC; 87081-TC; 87086-TC; G0378; J3370; J7030; J7040; J7060

== ENCOUNTER 2020-04-08 16:08 | Inpatient (IN) | payer MEDICARE, OTHER ==
[~2020-04-08] VITALS: Ht 157.5 cm; Wt 57.6 kg
--- NOTE | 2020-04-08 16:12 | NUR ---
BIBA "Homeless picked up from streets, legally Blind/uses walker. Leg pain", TO ER BED 15, HOOKED TO MONITOR, CHANGED TO HOSPITAL GOWN, PATIENT COVERED IN DRIED FECES, CLEANED PATIENT, NOTED WITH MASD AT PERINEAL AREA. HOOKED TO MONITOR, PATIENT AOx2, BREATHING EVEN AND UNLABORED. DR RAJAN AT BEDSIDE.
[2020-04-08 17:12] LABS: BASOPHILS # (AUTO) 0.1 /CMM (0.0-0.2); BASOPHILS % (AUTO) 1.3 % (0.0-2.0); EOSINOPHILS % (AUTO) 4.5 % (0.0-6.0); HEMATOCRIT 34 % (33-45); HEMOGLOBIN 11.2 g/dL (11.5-14.8); LYMPHOCYTES # (AUTO) 1.9 /CMM (0.8-4.8); LYMPHOCYTES % (AUTO) 28.2 % (20.0-44.0); MEAN CORPUSCULAR HGB CONC 33 g/dl (31.0-36.0); MEAN CORPUSCULAR VOLUME 87 fL (82-100); MONOCYTES # (AUTO) 0.6 /CMM (0.1-1.30); MONOCYTES % (AUTO) 8.1 % (2.0-12.0); NEUTROPHILS % (AUTO) 57.9 % (43.0-81.0); PLATELET COUNT (AUTO) 260 /CMM (150-450); RED BLOOD CELL COUNT(AUTO) 3.89 MIL/uL (4.0-5.2); WHITE BLOOD COUNT (AUTO) 6.8 K/uL (4.3-11.0)
[2020-04-08 17:17] LABS: CALCIUM, SERUM 8.3 mg/dL (8.5-10.1); CARBON DIOXIDE 29 mmol/L (21-32); CHLORIDE 109 mmol/L (98-107); CREATININE 1.4 mg/dL (0.6-1.3); GLUCOSE 117 mg/dL (74-106); POTASSIUM 3.8 mmol/L (3.5-5.1); SODIUM SERUM 146 mmol/L (136-145); UREA NITROGEN, BLOOD 38 mg/dL (7-18)
[2020-04-08 17:23] LABS: ALANINE AMINOTRANSFERASE 19 U/L (12-78); ALBUMIN 3.4 g/dL (3.4-5.0); ALCOHOL, BLOOD < 3 mg/dL (0-0); ALKALINE PHOSPHATASE 99 U/L (46-116); ASPARTATE AMINOTRANSFERASE 15 U/L (15-37); BILIRUBIN,DIRECT 0.1 mg/dL (0.0-0.2); BILIRUBIN,TOTAL 0.2 mg/dL (0.2-1.0); TOTAL PROTEIN, SERUM 7.2 g/dL (6.4-8.2)
[2020-04-08 17:24] LABS: SALICYLATE 0.9 mg/dL (2.8-20.0)
[2020-04-08 17:25] LABS: ACETAMINOPHEN 0 ug/ml (10-30)
[2020-04-08] MEDS ORDERED: VANCOMYCIN 1 GM in IV D5W 250 ML IV ONE (17:30)
[2020-04-08] MEDS ORDERED: IV NS 0.9% 1,000 ML BAG IV ONE (17:30)
--- NOTE | 2020-04-08 17:36 | NUR ---
PAGED [facility].
[2020-04-08] MEDS ORDERED: VANCOMYCIN 1 GM VIAL ONE (17:45)
[2020-04-08] MEDS ORDERED: VITA1TAB56 PO (17:50)
[2020-04-08] MEDS ORDERED: UBID50TA3 PO (17:50)
--- NOTE | 2020-04-08 18:12 | NUR ---
NOTED PATIENT ITCHING AND DEVEVOLPED HIVES IN BILAT UPPER THIGH AND HER LEG IS ITCHY. TSERING SIMS MD MADE AWARE AND RECEIVED ORDER TO GIVE BENADRYL 25MG IV X 1. NOTED AND CARRIED OUT
[2020-04-08] MEDS ORDERED: diphenhydrAMINE HCL 50 MG/ML VIAL ONE (18:13)
[2020-04-08] MEDS ORDERED: HYDROCODONE/APAP 5/325MG 1 EACH TABLET PO PRN (18:30)
[2020-04-08] MEDS ORDERED: MAGNESIUM HYDROXIDE 30 ML UDC PO PRN (18:30)
[2020-04-08] MEDS ORDERED: diphenhydrAMINE HCL 50 MG/ML VIAL IV ONE (18:30)
[2020-04-08] MEDS ORDERED: ACETAMINOPHEN 325 MG TABLET PO PRN (18:30)
[2020-04-08] MEDS ORDERED: ZOLPIDEM TARTRATE 5 MG TABLET PO PRN (18:30)
[2020-04-08] MEDS ORDERED: ONDANSETRON HCL/PF 4 MG/2 ML VIAL IVP PRN (18:30)
[2020-04-08] MEDS ORDERED: Z GUARD REMEDY 2 OZ OINT TP PRN (18:30)
[2020-04-08] MEDS ORDERED: MAG HYDROX/AL HYDROX/SIMETH 30 ML UDC PO PRN (18:30)
--- NOTE | 2020-04-08 19:30 | NUR ---
BED ASSIGNMENT 321-2
--- NOTE | 2020-04-08 19:34 | NUR ---
REPORT GIVEN TO CHRIS DEL TORO FOR KEE.
[2020-04-08 20:40] VITALS: BP 123/46
--- NOTE | 2020-04-08 21:01 | NUR ---
PT TRANSPORTED TO UNIT ON [facility] W/ EMT AT BEDSIDE. PT IS STABLE FOR TRANSPORT. NAD NOTED.
[2020-04-08] MEDS: IV NS 0.9% 1,000 ML IV SCH (21:19)
--- NOTE | 2020-04-08 23:06 | NUR ---
MS/TELE/RN RECEIVED PATIENT FROM [facility]. PATIENT WAS AWAKE, ALERT, ORIENTED, COMFORTABLE, NO C/O PAIN AT THIS TIME, NO SIGNS OF DISTRESS NOTED. ADMISSION DONE PER PROTOCOL, SKIN ASSESSMENT DONE, PHOTOS WERE TAKEN, PLAN OF CARE DISCUSSED, VERBALIZED UNDERSTANDING AND AGREEMENT TO THE PLAN OF CARE. TAUGHT THE USE OF CALL LIGHT, AND PLACED IT AT BEDSIDE WITHIN REACH, FALL PRECAUTIONS PER PROTOCOL INSTITUTED, WILL MONITOR.
--- NOTE | 2020-04-08 23:09 | NUR ---
MS/TLE/RN PATIENT IS SLEEPING AT THIS TIME, APPEAR COMFORTABLE, NO SIGNS OF DISTRESS NOTED, CALL LIGHT IN REACH, WILL CONTINUE TO MONITOR.
--- NOTE | 2020-04-09 06:21 | NUR ---
MS/TELE/RN PATIENT IS STILL SLEEPING, APPEAR COMFORTABLE, NO SIGNS OF DISTRESS NOTED, CALL LIGHT IN REACH. ALL NEEDS ATTENDED AT THIS TIME, WILL CONTINUE TO MONITOR.
[2020-04-09 06:34] LABS: BASOPHILS # (AUTO) 0.1 /CMM (0.0-0.2); EOSINOPHILS % (AUTO) 4.4 % (0.0-6.0); HEMATOCRIT 34 % (33-45); LYMPHOCYTES # (AUTO) 2.2 /CMM (0.8-4.8); LYMPHOCYTES % (AUTO) 30.5 % (20.0-44.0); MEAN CORPUSCULAR HGB CONC 32 g/dl (31.0-36.0); MEAN CORPUSCULAR VOLUME 88 fL (82-100); MONOCYTES # (AUTO) 0.5 /CMM (0.1-1.30); MONOCYTES % (AUTO) 6.5 % (2.0-12.0); NEUTROPHILS # (AUTO) 4.1 /CMM (1.8-8.9); NEUTROPHILS % (AUTO) 57.6 % (43.0-81.0); PLATELET COUNT (AUTO) 221 /CMM (150-450); RED BLOOD CELL COUNT(AUTO) 3.85 MIL/uL (4.0-5.2); WHITE BLOOD COUNT (AUTO) 7.1 K/uL (4.3-11.0)
[2020-04-09] MEDS: IV NS 0.9% 1,000 ML IV SCH (06:35)
[2020-04-09 06:53] LABS: CALCIUM, SERUM 7.8 mg/dL (8.5-10.1); CREATININE 1.3 mg/dL (0.6-1.3); MAGNESIUM 1.9 mg/dL (1.8-2.4); PHOSPHORUS 3.9 mg/dL (2.5-4.9); POTASSIUM 3.8 mmol/L (3.5-5.1)
--- NOTE | 2020-04-09 07:30 | NUR ---
PT RECEIVED RESTING COMFORTABLY IN BED. NO S/S OR C/O PAIN OR DISTRESS NOTED. SIDE RAILS UP X2, CALL LIGHT LEFT WITHIN REACH. WILL CONTINUE PLAN OF CARE.
[2020-04-09 08:00] VITALS: BP 147/60
[2020-04-09] MEDS: VITAMIN B COMP W-C 1 TAB TABLET PO SCH (08:45)
[2020-04-09] MEDS: AMOXICILLIN TRIHYDRATE 250 MG CAPSULE PO SCH ×2 (12:31→21:04)
[2020-04-09 16:00] VITALS: BP 137/58
--- NOTE | 2020-04-09 18:50 | NUR ---
CHANGE OF SHIFT REPORT PT RESTING COMFORTABLY IN BED. NO S/S OR C/O PAIN OR DISTRESS NOTED. SIDE RAILS UP X2, CALL LIGHT LEFT WITHIN REACH. PT KEPT CLEAN, DRY, AND COMFORTABLE. NO SIGNIFICANT CHANGES SINCE PREVIOUS SHIFT. WILL GIVE REPORT TO ARLENE PEREZ.
--- NOTE | 2020-04-09 20:07 | NUR ---
MS/TELE/RN PATIENT IS AWAKE, ALERT, ORIENTED, COMFORTABLE, NO C/O PAIN, NO DISTRESS NOTED, CALL LIGHT IN REACH. FALL PRECAUTIONS IN PLACE. WILL MONITOR.
[2020-04-09 20:39] VITALS: BP 156/70
[2020-04-09] MEDS: IV NS 0.9% 1,000 ML IV PRN (21:07)
[2020-04-09] MEDS: Z GUARD REMEDY 2 OZ OINT TP SCH (21:42)
--- NOTE | 2020-04-10 00:39 | NUR ---
MS/TELE/RN PATIENT IS SLEEPING AT THIS TIME, APPEAR COMFORTABLE, NO SIGNS OF DISTRESS NOTED, CALL LIGHT IN REACH, WILL CONTINUE TO MONITOR.
--- NOTE | 2020-04-10 06:31 | NUR ---
MS/TELE/RN PATIENT STILL SLEEPING AT THIS TIME, APPEAR COMFORTABLE, NO SIGNS OF DISTRESS NOTED, CALL LIGHT IN REACH. ALL NEEDS ATTENDED AT THIS TIME, WILL CONTINUE TO MONITOR.
[2020-04-10] MEDS: IV NS 0.9% 1,000 ML IV PRN (06:36)
--- NOTE | 2020-04-10 07:30 | NUR ---
RN MS NOTES PT IN BED, ASLEEP, EASY TO AROUSE, NO COMPLAINT, BREATHING PATTERN NORMAL, CALL LIGHT WITHIN REACH, KEPT COMFORTABLE.
[2020-04-10 08:00] VITALS: BP 143/58
[2020-04-10] MEDS: VITAMIN B COMP W-C 1 TAB TABLET PO SCH (09:00)
[2020-04-10] MEDS: AMOXICILLIN TRIHYDRATE 250 MG CAPSULE PO SCH ×3 (09:20→21:33)
[2020-04-10] MEDS: Z GUARD REMEDY 2 OZ OINT TP SCH ×2 (09:20→21:34)
--- NOTE | 2020-04-10 12:44 | NUR ---
RN MS NOTES PT AWAKE, SITTING IN BED, NO COMPLAINT OF PAIN, NOT IN DISTRESS, REQUESTED TO BE DISCONNECTED FROM IV FLUIDS FOR NOW, REFUSED AM LABS, AWARE, AMBULATES TO THE BATHROOM WITH A WALKER WITH STANDBY ASSISTANCE, NEEDS ATTENDED.
[2020-04-10 16:00] VITALS: BP 158/83
--- NOTE | 2020-04-10 18:39 | NUR ---
RN MS NOTES PT IN BED, RESTING, NO COMPLAINT OF PAIN OR ANY DISCOMFORT AT THIS TIME, CALL LIGHT WITHIN REACH, IV FLUIDS INFUSING WELL, TOLERATES CURRENT DIET, NEEDS ATTENDED.
--- NOTE | 2020-04-10 19:30 | NUR ---
MS RN OPENING NOTE RECEIVED PATIENT IN BED. A/OX4. TOLERATING ROOM AIR AT THIS TIME. RESPIRATIONS ARE EVEN AND UNLABORED. NO S/S SOB NOTED. NO C/O PAIN AT THIS TIME. IN NO APPARENT DISTRESS. IV ACCESS IN LEFT HAND#20 RUNNING NS@100ML/HR. BED IS LOW AND LOCKED HOB ELEVATED IN SEMI FOWLERS, SIDE RIALS UP X2, CALL LIGHT WITHIN REACH. WILL CONTINUE TO MONITOR.
--- NOTE | 2020-04-10 19:30 | NUR ---
MS RN OPENING NOTE RECEIVED PATIENT IN BED. A/OX3. LITHUANIAN SPEAKING ABLE TO MAKE BASIC NEEDS KNOWN. TOLERATING ROOM AIR AT THIS ITME. RESPIRATIONS ARE EVEN AND UNLABORED. NO S/S SOB NOTED. NO C/O PAIN AT THIS TIME. IN NO APPARENT DISTRESS. IV ACCESS IN GUI PICC LINE PATENT AND SALINE LOCKED. ILEOSTOMY IS PRESENT, NO REDNESS OR INFECTION NOTED. BILATERAL SHINE DRAINS PRESENT, DRAINING TO BULB SUCTION. BED IS LOW AND LOCKED HOB ELEVATED IN SEMI FOWLERS, SIDE RIALS UP X2, CALL LIGHT WITHIN REACH. WILL CONTINUE TO MONITOR. Addendum: 04/10/20 at 1945 by CARMEN GUTIERREZ RN JABIER NOTE ABOVE. WRONG PATIENT.
[2020-04-10 20:00] VITALS: BP 192/71
--- NOTE | 2020-04-10 21:51 | NUR ---
MS RN NOTE PATIENT REFUSED TO TAKE ANTIBIOTICS AMOXICILLIN 500MG SCHEDULES FOR 2200 D/T WANTING TO SPEAK TO MD BEFORE RECEIVING MEDICATIONS. PATIENT IS REFUSING IV FLUIDS D/T FEELING SHE IS SWOLLEN ON RIGHT HAND AND BACK OF HEAD/NECK. ASSESSES PATIENT THERE IS NO EDEMA IN THESE AREAS. INFORMED HER WILL HAVE MD SPEAK AND ASSESS HER SOON HE IS AVAILABLE. 2000 BLOOD PRESSURE READS 192/71 HR 65. REASSESS 2100 BP IS 166/86 HR 65. INFORMED PATIENT I WILL NEED TO GIVE BLOOD PRESSURE MEDICATIONS. PATIENT REFUSED AND STATED SHE WANTS TO SEE THE MD.
--- NOTE | 2020-04-11 07:31 | NUR ---
MS RN CLOSING NOTE PATIENT IN BED. A/OX4. TOLERATING ROOM AIR. RESPIRATIONS ARE EVEN AND UNLABORED. NO SOB NOTED. NO C/O PAIN. NO DISTRESS. IV ACCESS MAINTAINED IN LEFT HAND#20 PATENT AN DSALINE LOCKED, PATIENT IS REFUSING FLUIDS. BED IS LOW AND LOCKED HOB ELEVATED IN SEMI FOWLERS, SIDE RIALS UP X2, CALL LIGHT WITHIN REACH. WILL ENDORSE TO NEXT SHIFT
[2020-04-11 08:26] VITALS: BP 144/60
[2020-04-11] MEDS: VITAMIN B COMP W-C 1 TAB TABLET PO SCH (08:33)
[2020-04-11] MEDS: AMOXICILLIN TRIHYDRATE 250 MG CAPSULE PO SCH ×2 (08:33→20:20)
[2020-04-11] MEDS: Z GUARD REMEDY 2 OZ OINT TP SCH ×2 (08:33→20:20)
--- NOTE | 2020-04-11 10:00 | NUR ---
m/s scenic designer: md visit alexsander (acnp) here and informed her pt still refusing iv fluids and some medications; also wants to talk to a doctor. rounded with alexsander and pt verbalizing wanting to see a doctor. for psych consult (dr. fall). will continue to monitor.
--- NOTE | 2020-04-11 10:09 | NUR ---
WOUND CARE CONSULT: PT PRESENTS WITH REDNESS AND INCONTINENCE ASSOCIATED IRRITATION TO BUTTOCKS, PRESENT ON ADMISSION. PT URINATES FREQUENTLY. PT STATES HER INCONTINENCE IS FROM THE ELECTRONICS ON THE BENCHES WHERE SHE SLEEPS AND SHE STATES SHE IS HOMELESS. RECOMMENDATIONS MADE FOR SKIN PROTECTION. DISCUSSED WITH NURSING STAFF. PT IS INDEPENDENT WITH BED MOBILITY. WILL SEE PRN. CURRENT LESLIE SCORE IS 19.
[2020-04-11] MEDS: MUPIROCIN OINT 2% 22 GM TUBE SCH ×2 (10:36→20:19)
--- NOTE | 2020-04-11 11:55 | NUR ---
SOCIAL WORK NOTE: This is a 75-year-old homeless female patient who was BIB by EMS after pt called 911 due to increasing buttock pain and leg pain. Upon social work evaluation, pt presents sitting at bedside talking to herself. When asked by this expert medical writer who she was talking to responded with, "I'm praying, what are you trying to say that I'm crazy." Pt presents agitated and easily irritable pt has impaired insight and judgement and is alert and oriented x3. Pt is ambulatory and appears appropriately dressed and groomed. Pt states that she came to the hospital due to, " They're using electronics under the bench that send vibrations and they're using them in my behind until I break." Pt appears delusional and paranoid and was uncooperative during the interview. Pt began yelling when asked about her mental health history, stating "I'm not crazy and I've never been in a psych unit, If you're saying I was, I'm going to call a ecclesiastical worker because that information was not ascertained by me. Why was I here, tell me. I've never been crazy in my life" Pt states he is homeless and refuses placement, pt states she receives $1100 in SSI and sleeps on a bench on [address] and [place]. SW consulted with Zaria TY, who has requested a psych consult for pt.
--- NOTE | 2020-04-11 12:00 | NUR ---
m/s lineman a class: notes lunch served, but pt refused hot food and request for a sandwich. kitchen notified and ordered a sandwich for her.
--- NOTE | 2020-04-11 14:00 | NUR ---
m/s blasting contract man: notes sitting up at the edge of the bed. no distress noted. awaiting for dr. fall (psych) to see pt.
[2020-04-11 16:12] VITALS: BP 160/66
--- NOTE | 2020-04-11 17:00 | NUR ---
m/s guest relations manager: notes pt acting up, threatening to pull her iv out, wants it flush once more. still awaiting for psych to see pt for consult. pt appears to have a breakdown. encouraged to verbalized feelings. emotional support provided.
--- NOTE | 2020-04-11 19:00 | NUR ---
m/s arc welder apprentice: notes report given to sally (rn) for continuity of care.
--- NOTE | 2020-04-11 19:40 | NUR ---
MS RN OPENING NOTES RECEIVED PATIENT RESTING IN BED, A/OX2-3; BREATHING EVEN AND UNLABORED, TOLERATING ROOM AIR WELL, NO SOB NOTED; PATIENT AMBULATORY; L HAND #20 SL INTACT AND PATENT, FLUSHING WELL, NO S/S OF REDNESS OR INFILTRATION NOTED; PER AM SHIFT, PATIENT REFUSING IVF; PATIENT CONTINUES TO REFUSE IVF; WILL TRY AGAIN LATER; SAFETY PRECAUTIONS IMPLEMENTED; WILL CONTINUE TO MONITOR
[2020-04-11 20:00] VITALS: BP 158/79
--- NOTE | 2020-04-11 20:00 | NUR ---
MS RN NOTES PATIENT REFUSING SCHEDULED MEDS; RISKS AND BENEFITS DISCUSSED, PATIENT EDUCATED; PATIENT STILL REFUSED; PSYCHOLOGICAL TESTS SALES AGENT STANISLAV HINTON AWARE THAT PATIENT IS NON-COMPLIANT. WILL CONTINUE TO MONITOR
--- NOTE | 2020-04-11 21:48 | NUR ---
MS RN NOTES PATIENT IV L HAND #20 PULLED OUT; IV TIP INTACT; NO S/S OF BLEEDING; SKIN INTACT; PATIENT REFUSING RE-INSERTION OF IV ACCESS; RISKS AND BENEFITS DISCUSSED AND REVIEWED WITH PATIENT; PATIENT EDUCATED; PATIENT STILL REFUSED; PATIENT ALSO REFUSING IVF; CHARGE NURSE AWARE; WILL CONT TO MONITOR
--- NOTE | 2020-04-12 01:30 | NUR ---
MS RN NOTES PATIENT REQUESTED FOR DOOR TO BE CLOSED IN ORDER FOR HER TO BE ABLE TO GET ADEQUATE/SUFFICIENT REST/SLEEP; WILL CONT TO MONITOR
--- NOTE | 2020-04-12 03:30 | NUR ---
MS RN NOTES PATIENT CONTINUES TO REFUSE RE-INSERTION OF IV; CHARGE NURSE AWARE; PATIENT REFUSING IVF. RISKS AND BENEFITS DISCUSSED; PATIENT CONTINUES TO REFUSE; WILL INFORM AM NURSE
--- NOTE | 2020-04-12 06:21 | NUR ---
MS RN NOTES PATIENT RESTING IN BED COMFORTABLY; A/OX2-3; PATIENT TOLERATING ROOM AIR WELL; BREATHING EVEN AND UNLABORED; NO SOB NOTED; PATIENT CONTINUES TO REFUSE IV INSERTION AND IV FLUIDS; PATIENT NON-COMPLIANT, ORACLE BPM CONSULTANT AWARE; SAFETY PRECAUTIONS IMPLEMENTED; BED LOCKED IN LOW POSITION; SIDE RAILS X2; CALL LIGHT WITHIN REACH; WILL KEE TO ONCOMING SHIFT
--- NOTE | 2020-04-12 07:35 | NUR ---
MS/RN NOTE THE PATIENT IS RECEIVED IN BED. THE PATIENT IS ALERT AND ORIENTED X2. IN ROOM AIR AND DENIES SOB. RESPIRATION REGULAR AND UNLABORED. DENIES PAIN. THE PATIENT IN NO APPARENT DISTRESS. NO IV ACCESS. BED LOW AND LOCKED. SIDE RAILS UP X2. CALL LIGHT WITHIN REACH. WILL CONTINUE TO MONITOR.
[2020-04-12] MEDS: AMOXICILLIN TRIHYDRATE 250 MG CAPSULE PO SCH (09:00)
[2020-04-12] MEDS: Z GUARD REMEDY 2 OZ OINT TP SCH (09:00)
[2020-04-12] MEDS: MUPIROCIN OINT 2% 22 GM TUBE SCH (09:00)
[2020-04-12] MEDS: VITAMIN B COMP W-C 1 TAB TABLET PO SCH (09:00)
--- NOTE | 2020-04-12 09:43 | NUR ---
MS/RN NOTE THE PATIENT REFUSED BACTROBAN, AMOXICILLIN AND SURBEX-T DESPITE EXPLAINING RISKS AND BENEFITS MULTIPLE TIMES.
[2020-04-12] MEDS: OLANZAPINE 10 MG VIAL IM ONE ×2 (10:00→11:04)
--- NOTE | 2020-04-12 11:13 | NUR ---
MS/RN NOTE ZYPREXA 5 MG DUE AT 1000 IS NOT GIVEN, INSTEAD IT IS DISCARDED BECAUSE HER DILUTING THE MEDICATION THE PATIENT REFUSED IT LAST MIN DESPITE EXPLAINING RISKS AND BENEFITS.
[2020-04-12] MEDS ORDERED: AMOX250C PO (15:04)
[2020-04-12] MEDS ORDERED: OLAN5TAB6 PO (15:04)
[2020-04-12] MEDS ORDERED: MUPI22OI7 (15:04)
--- NOTE | 2020-04-12 15:50 | NUR ---
MS/RN NOTE THE PATIENT IS ALERT AND ORIENTED X2. ABLE TO COMMUNICATE NEEDS VERBALLY. THE PATIENT IS PROVIDED WITH DISCHARGE EDUCATION, SHE VERBALIZED UNDERSTANDING BUT REFUSED TO SIGN DISCHARGE PAPERS DESPITE EXPLAINING RISKS AND BENEFITS. THE PATIENT IS WHEELED TO GPS ON A W/CHAIR. THE PATIENT LEFT THE UNIT IN STABLE CONDITION.
[2020-04-12] MEDS ORDERED: OLANZAPINE 5 MG/TAB.RAPDIS PO SCH (21:00)
== END 2020-04-12 15:45 | DRG 602 ==
LOC: ER 16:10 → MED 20:11
PROVIDERS: ADMIT Nurse Practitioner Acute Care; ATTEND Nurse Practitioner Acute Care
DX: L03.315 Cellulitis of perineum (principal); N17.0 Acute kidney failure with tubular necrosis; E87.0 Hyperosmolality and hypernatremia; F31.2 Bipolar disorder, current episode manic severe with psychotic features; E11.9 Type 2 diabetes mellitus without complications; L30.4 Erythema intertrigo; E78.5 Hyperlipidemia, unspecified; E86.9 Volume depletion, unspecified; I10 Essential (primary) hypertension; Z59.0 Homelessness; R32 Unspecified urinary incontinence; R26.9 Unspecified abnormalities of gait and mobility; F29 Unspecified psychosis not due to a substance or known physiological condition; Z98.890 Other specified postprocedural states; Z88.1 Allergy status to other antibiotic agents; Z88.2 Allergy status to sulfonamides; Z91.14 Patient's other noncompliance with medication regimen; F39 Unspecified mood [affective] disorder; H54.8 Legal blindness, as defined in USA; Z22.322 Carrier or suspected carrier of Methicillin resistant Staphylococcus aureus
CPT/HCPCS: 36415; 80048-TC; 80061-TC; 80076-TC; 83605-TC; 83735-TC; 84100-TC; 85025-TC; 87040-TC; 87081-TC; 97116-TC; 97530-TC; G0378; G0480; J1200; J3370; J3490; J7030; J7060

== ENCOUNTER 2020-04-12 15:54 | Inpatient (IN) | payer MEDICARE, OTHER ==
[~2020-04-12] VITALS: Ht 162.6 cm; Wt 56.2 kg
--- NOTE | 2020-04-12 15:40 | NUR ---
RESEARCH PROGRAM ASSISTANT NOTE- 75 Y/O FEMALE ADMITTED FROM [facility] FOR 5150 GD DX- PSYCHOSIS. PT ORIGINALLY ADMITTED FOR KIDNEY PROBLEMS AND EXCORIATION TO GENITAL AREA. PT HOMELESS. ON FACE TO FACE ASSESSMENT, PT PRESENTS WITH ANGRY AFFECT, ALERT ORIENTED TO PERSON PLACE ONLY. OPPOSITIONAL TO CARE AND ADMISSION PROCESS. PMHX OF HTN HLD AND NUMEROUS PSYCH HOSPITALIZATIONS. CURRENT VS- B/P-145/67, HR-60/M, RR-18/M, SATURATION 100% RA. TEMP- 98.0. ACCU-CHECK 112. PT WEIGHS 124 POUNDS, PT IS 5 FT 4 INCHES TALL. PT REFUSING MEDICATIONS ON [facility]. POSSESSIONS INVENTORIED AND LOCKED UP IN SAFE AND PT LOCKER. DR MIRAMONTES NOTIFIED OF ADMISSION, ORDERS GIVEN AND RECEIVED. PT AGGRESSIVE. DR MIRAMONTES ORDERED ZYPREXA 5MG IM AND ATIVAN 1 MG GIVEN ONE TIME DOSE. PT RIGHTS HANDBOOK AND UNIT ORIENTATION REVIEWED WITH PT. PROVIDE SAFE THERAPEUTIC ENVIRONMENT PER GPS PROTOCOL. Addendum: 04/12/20 at 1828 by ANATOLY CLINE RN ON ASSESSMENT, PT REFUSED SKIN CARE EVAL AND PHOTOS
[~2020-04-12 15:54] MED LIST changes: -ACET325T53 PO; -ALLA266C2 TP; +AMOX250C PO; -ASPI-869 PO; -CLOP75TA15 PO; -METO25TA20 GT; +MUPI22OI7; -NITR0.4T SL; +OLAN5TAB6 PO; -OXYC-162 PO; -QUET25TA PO; -SIMV-49 PO; -TRAM50TA2 PO; -TRIA15CR MC; +UBID50TA3 PO; +VITA1TAB56 PO
[2020-04-12] MEDS ORDERED: ZOLPIDEM TARTRATE 5 MG TABLET PO PRN (16:00)
[2020-04-12] MEDS ORDERED: MAGNESIUM HYDROXIDE 30 ML UDC PO PRN (16:00)
[2020-04-12] MEDS ORDERED: LORAZEPAM 0.5 MG TABLET PO PRN (16:00)
[2020-04-12] MEDS ORDERED: MAG HYDROX/AL HYDROX/SIMETH 30 ML UDC PO PRN (16:00)
[2020-04-12] MEDS ORDERED: ACETAMINOPHEN 325 MG TABLET PO PRN (16:00)
[2020-04-12] MEDS ORDERED: BLOOD SUGAR DIAGNOSTIC 1 EACH STRIP IN ONE (16:00)
[2020-04-12] MEDS ORDERED: LORAZEPAM INJ 2 MG/ML VIAL IV STA (16:03)
[2020-04-12] MEDS ORDERED: LORAZEPAM INJ 2 MG/ML VIAL IM STA (16:09)
[2020-04-12] MEDS ORDERED: OLANZAPINE 10 MG VIAL IM ONE (16:30)
--- NOTE | 2020-04-12 16:51 | NUR ---
RN NOTE- PT AGITATED ON ADMISSION. AGGRESSIVE. DR MIRAMONTES ORDERED ZYPREXA 5 MG IM AND ATIVAN 1 MG IM TO BE GIVEN ONCE. PT CALMED DURING ADMISSION AND THIS RN FELT IM INJECTION NO LONGER WARRANTED.
[2020-04-12 20:21] VITALS: BP 175/76
[2020-04-12 20:36] VITALS: BP 159/76
[2020-04-12] MEDS: MUPIROCIN OINT 2% 22 GM TUBE SCH (20:51)
--- NOTE | 2020-04-12 20:51 | NUR ---
GPS RN NOTES: REFUSED BACTROBAN PT REFUSED BACTROBAN OINT. PT INCREASED AGITATION. PT STATED, "NO. IM NOT TAKING THAT!" EXPLAIN RISKS AND BENEFITS. PT STILL REFUSED X3. CONTINUE TO MONITOR
[2020-04-12] MEDS: AMOXICILLIN TRIHYDRATE 250 MG CAPSULE PO SCH (21:02)
--- NOTE | 2020-04-12 23:17 | NUR ---
GPS RN NOTES: UPON DOING ROUNDS, PT SITTING IN A CHAIR IN HER ROOM. ASKED PT IF SHE IS UNABLE TO SLEEP. OFFERED VEE AGN ORDERED. PT REFUSED AND STATED, "MINAL SIT HERE. IM A NIGHT PERSON BECAUSE IM USE TO BEING UP AT NIGHT. I CAN SLEEP DURING THE DAY.IM A NIGHT OWL. I CAN SLEEP ON MY OWN." EXPLAIN RISKS AND BENEFITS. PT STILL REFUSED X3. CONTINUE TO MONITOR PATIENT.
[2020-04-13 08:00] VITALS: BP 153/88
[2020-04-13] MEDS: AMOXICILLIN TRIHYDRATE 250 MG CAPSULE PO SCH ×2 (08:15→21:36)
[2020-04-13] MEDS: MUPIROCIN OINT 2% 22 GM TUBE SCH ×3 (08:16→21:37)
[2020-04-13] MEDS ORDERED: OLANZAPINE 10 MG VIAL IM ONE (11:00)
--- NOTE | 2020-04-13 11:01 | NUR ---
WOUND CARE CONSULT: PT REFUSED SKIN ASSESSMENT. PT HAS HISTORY OF INCONTINENCE AND INCONTINENCE ASSOCIATED SKIN IRRITATION. RECOMMENDATIONS MADE FOR SKIN PROTECTION. DISCUSSED WITH NURSING STAFF. PT IS SITTING IN CHAIR AT THIS TIME. WILL SEE PRN.
--- NOTE | 2020-04-13 11:17 | NUR ---
RN note :at 11:17 patient agitated and yelling loud not following directions .Patient threatening staff ,hostile and angry .I tried to redirect her into lower stimuli setting and tried calming her down but patient still agitated and hostile patient seen by with new orders Zyprexa 10mg IM .All orders carried out ,patient refused vs signsx4 no sob noted respiration unlabored .will continue to monitor .
[2020-04-13] MEDS ORDERED: Z GUARD REMEDY 2 OZ OINT TP PRN (11:30)
[2020-04-13 16:00] VITALS: BP 154/64
--- NOTE | 2020-04-13 16:07 | NUR ---
Initial Discharge Plan: Pt is currently homeless. Pt refused to discuss discharge planning options. SW will work with the pt and the MD regarding appropriate discharge planning. SW will form a safe and proper discharge.
--- NOTE | 2020-04-13 16:16 | NUR ---
Individual counseling : SW met with pt. at bedside to engage in individual counseling. However, pt. was asleep and was not easily rousable. Patient will be invited to attend future group or individual counseling.
[2020-04-13 20:14] VITALS: BP 134/36
[2020-04-13] MEDS: OLANZAPINE 5 MG/TAB.RAPDIS PO SCH (21:36)
[2020-04-13] MEDS: Z GUARD REMEDY 2 OZ OINT TP SCH (21:37)
--- NOTE | 2020-04-14 07:35 | NUR ---
GPS RN OPENING NOTE: RECEIVED PATIENT UP IN BED, AOX3. PATIENT IS LEGALLY BLIND. ORIENTED TO TIME AND DAY. ON ISOLATION FOR MRSA OF NARES. PATIENT AMBULATES WITH WALKER. BREATHING IS EVEN AND UNLABORED WITH EQUAL RISE AND OF FALL OF CHEST. PATIENT DENIES PAIN AND IS EXHIBITING NO SIGNS OF DISTRESS. SAFETY PRECAUTIONS IN PLACE. BED IN LOCKED AND LOW POSITION WITH 2 SIDE RAILS UP FOR SAFETY. NEEDS MET. WILL CONTINUE TO MONITOR Q15 FOR MOOD, SAFETY AND BEHAVIOR.
[2020-04-14 08:00] VITALS: BP 132/55
[2020-04-14] MEDS: AMOXICILLIN TRIHYDRATE 250 MG CAPSULE PO SCH ×2 (08:40→20:51)
[2020-04-14] MEDS: OLANZAPINE 5 MG/TAB.RAPDIS PO SCH ×3 (08:51→20:50)
[2020-04-14] MEDS: MUPIROCIN OINT 2% 22 GM TUBE SCH ×2 (08:51→20:49)
[2020-04-14] MEDS: Z GUARD REMEDY 2 OZ OINT TP SCH ×2 (08:51→20:49)
--- NOTE | 2020-04-14 08:51 | NUR ---
GPS RN NOTE: MED REFUSAL PATIENT REFUSED BACTROBAN OINTMENT FOR MRSA IN NARES. PATIENT REFUSED ZYPREXA 5MG STATING THAT SHE DOESNT HAVE PSYCHIATRIC ISSUES. PATIENT REFUSED APPLICATION OF ZGUARD THIS AM. DESPITE MULTIPLE ATTEMPTS AND EDUCATION PATIENT CONTINUED TO REFUSE. WILL CONTINUE TO MONITOR
--- NOTE | 2020-04-14 15:50 | NUR ---
INDIVIDUAL INTERVENTION: SW met with pt at bedside, pt began asking SW what was on the door, when SW answered stating there was nothing on the door, pt became agitated and stated, "who do you think I am, a fool." Pt then got up from her seat and went to look closer at the door and realized there was nothing there then stated, "oh you're right there is nothing there." SW then asked pt about her discharge plan and pt responded with, "what do you care where I go, do you have $100,000.00 to give me." When SW responded no pt then yelled at SW to get out of her room. Pt is not appropriate for individual interventions as pt is agitated and has impaired insight and is paranoid and delusional.
[2020-04-14 16:00] VITALS: BP 144/72
[2020-04-14 21:08] VITALS: BP 155/64
--- NOTE | 2020-04-14 23:37 | NUR ---
GPS RN NOTES: UPON DOING ROUNDS, PT SITTING IN A CHAIR IN HER ROOM. ASKED PT IF SHE IS UNABLE TO SLEEP. OFFERED VEE AGN ORDERED. PT REFUSED AND STATED, " IM A NIGHT OWL. I DON'T NEED MEDS TO SLEEP." EXPLAIN RISKS AND BENEFITS. PT STILL REFUSED X3. CONTINUE TO MONITOR PATIENT.
--- NOTE | 2020-04-15 06:07 | NUR ---
GPS RN NOTES: REFUSED LABS PT REFUSED LABS TO BE DRAWN THIS MORNING. EXPLAINED RISKS AND PURPOSE. PT STILL REFUSED X3. PT INCREASED AGITATION. WILL ENDORSE TO DAY SHIFT NURSE. CONTINUE TO MONITOR.
[2020-04-15 08:00] VITALS: BP 126/57
[2020-04-15] MEDS: OLANZAPINE 5 MG/TAB.RAPDIS PO SCH (08:36)
[2020-04-15] MEDS: AMOXICILLIN TRIHYDRATE 250 MG CAPSULE PO SCH (08:36)
[2020-04-15] MEDS: Z GUARD REMEDY 2 OZ OINT TP SCH (08:37)
[2020-04-15] MEDS: MUPIROCIN OINT 2% 22 GM TUBE SCH (08:37)
--- NOTE | 2020-04-15 09:30 | NUR ---
RN NOTES PATIENT RAND LEPE , Dr MIRAMONTES, AND SW TALKED TO THE PATIENT.
--- NOTE | 2020-04-15 09:46 | NUR ---
HOMELESS WAIVER: Pt refused to sign the homeless waiver and was witness by RN.
--- NOTE | 2020-04-15 09:56 | NUR ---
AMA DISCHARGE: Pt is leaving AMA, pt refused to sign the homeless waiver and refused resources. SW placed homeless resources in pts chart. Pt stated shes going to a motel but refused to state where. Pts mood is easily irritable with congruent affect. Pt denied visual/auditory hallucinations and denied suicidal/homicidal ideation.
--- NOTE | 2020-04-15 11:30 | NUR ---
CROP PULLER NOTES PATIENT SIGN AMA AT THIS TIME, EXPLAINED PATIENT RISKS AND CONSEQUENCES LIVING THE HOSPITAL, THE BENEFITS, AND TREATMENT AND CONSEQUENCES AND LIVING THE HOSPITAL . DR MIRAMONTES, AND SW TALKED ALSO TALKED TO THE PATIENT BUT PATIENT NOTED SHE HAS MONEY, SHE IS STABLE, AND SHE KNOWS WHERE IS SHE GOING, AND SHE ABLE TO TAKE CARE SELF. ESCORTED PATIENT THE LOBBY FOR SAFETY.
== END 2020-04-15 11:30 | disposition left against medical advice (07) | DRG 885 ==
LOC: GPS 15:54
PROVIDERS: ADMIT Psychiatry & Neurology Psychiatry
DX: F25.0 Schizoaffective disorder, bipolar type (principal); N17.0 Acute kidney failure with tubular necrosis; L03.315 Cellulitis of perineum; F39 Unspecified mood [affective] disorder; I10 Essential (primary) hypertension; E78.5 Hyperlipidemia, unspecified; F29 Unspecified psychosis not due to a substance or known physiological condition; Z88.2 Allergy status to sulfonamides; Z91.19 Patient's noncompliance with other medical treatment and regimen; Z91.14 Patient's other noncompliance with medication regimen; Z59.0 Homelessness; L30.4 Erythema intertrigo; Z22.322 Carrier or suspected carrier of Methicillin resistant Staphylococcus aureus; E86.9 Volume depletion, unspecified; S30.814A Abrasion of vagina and vulva, initial encounter; X58.XXXA Exposure to other specified factors, initial encounter; Y92.89 Other specified places as the place of occurrence of the external cause
CPT/HCPCS: 82962-TC; 97116-TC; 97530-TC; J3490

== ENCOUNTER 2020-04-17 03:11 | Emergency (ER) | payer MEDICARE, OTHER ==
[~2020-04-17] VITALS: Ht 160 cm; Wt 54.4 kg
[~2020-04-17 03:11] MED LIST changes: -UBID50TA3 PO
--- NOTE | 2020-04-17 03:15 | NUR ---
PT [id number] FROM [facility] C/O RIGHT TOE PAIN X 1 WEEK, AMA'D FROM [facility] 04/15/20. PT AAOX4, RESPIRATIONS EVEN AND UNLABORED ON RA W/ NAD NOTED. CONNECTED TO THE MONITOR AND POX
[2020-04-17] MEDS ORDERED: IBUPROFEN 600 MG TABLET PO ONE (03:48)
[2020-04-17] MEDS: IBUPROFEN 600 MG TABLET PO ONE ×2 (04:09→04:24)
--- NOTE | 2020-04-17 04:11 | NUR ---
RADIOLOGY AT BEDSIDE FOR XRAY
--- NOTE | 2020-04-17 06:04 | NUR ---
PT MEDICALLY CLEARED FOR DISCHARGE. Patient given written and verbal discharge instructions. Patient verbalizes understanding of instructions. Patient is ambulatory with steady gait. Refuses offer of senior living placement. Patient refused list of available shelters in surrounding area.
--- NOTE | 2020-04-17 06:18 | NUR ---
Ambulatory with steady gait using walker.
--- NOTE | 2020-04-17 06:22 | NUR ---
Patient discharged to home in stable condition. Written and verbal after care instructions given. Patient verbalizes understanding of instruction.
[2020-04-17 06:23] VITALS: BP 138/71
== END 2020-04-17 06:23 | disposition home or self-care (01) ==
LOC: ER 03:11
DX: M79.671 Pain in right foot (principal); I10 Essential (primary) hypertension; E11.9 Type 2 diabetes mellitus without complications; Z90.89 Acquired absence of other organs; Z88.2 Allergy status to sulfonamides; Z88.6 Allergy status to analgesic agent; Z88.1 Allergy status to other antibiotic agents; Z59.0 Homelessness; Z79.899 Other long term (current) drug therapy
CPT/HCPCS: 73630-TC

== ENCOUNTER 2020-12-26 16:37 | Emergency (ER) | payer MEDICARE, OTHER ==
[~2020-12-26] VITALS: Ht 165.1 cm; Wt 92.5 kg
[2020-12-26 17:06] LABS: BASOPHILS # (AUTO) 0.1 /CMM (0.0-0.2); EOSINOPHILS % (AUTO) 3.1 % (0.0-6.0); HEMATOCRIT 38 % (33-45); HEMOGLOBIN 12.5 g/dL (11.5-14.8); LYMPHOCYTES # (AUTO) 1.9 /CMM (0.8-4.8); LYMPHOCYTES % (AUTO) 26.2 % (20.0-44.0); MEAN CORPUSCULAR HGB CONC 33 g/dl (31.0-36.0); MEAN CORPUSCULAR VOLUME 86 fL (82-100); MONOCYTES # (AUTO) 0.4 /CMM (0.1-1.30); MONOCYTES % (AUTO) 5.8 % (2.0-12.0); NEUTROPHILS # (AUTO) 4.7 /CMM (1.8-8.9); NEUTROPHILS % (AUTO) 63.9 % (43.0-81.0); PLATELET COUNT (AUTO) 351 /CMM (150-450); RED BLOOD CELL COUNT(AUTO) 4.44 MIL/uL (4.0-5.2); WHITE BLOOD COUNT (AUTO) 7.3 K/uL (4.3-11.0)
[2020-12-26 17:26] LABS: CALCIUM, SERUM 8.5 mg/dL (8.5-10.1); CARBON DIOXIDE 32 mmol/L (21-32); CHLORIDE 106 mmol/L (98-107); CREATININE 1.6 mg/dL (0.6-1.3); GLUCOSE 92 mg/dL (74-106); POTASSIUM 4.3 mmol/L (3.5-5.1); SODIUM SERUM 143 mmol/L (136-145); UREA NITROGEN, BLOOD 23 mg/dL (7-18)
[2020-12-26 17:32] LABS: ALANINE AMINOTRANSFERASE 14 U/L (12-78); ALBUMIN 3.6 g/dL (3.4-5.0); ALKALINE PHOSPHATASE 128 U/L (46-116); ASPARTATE AMINOTRANSFERASE 15 U/L (15-37); BILIRUBIN,TOTAL 0.2 mg/dL (0.2-1.0); LIPASE 133 U/L (73-393); TOTAL PROTEIN, SERUM 7.6 g/dL (6.4-8.2)
[2020-12-26 17:44] LABS: BILIRUBIN,URINE Negative (NEGATIVE); COLOR,URINE YELLOW (YELLOW); LEUKOCYTE ESTERASE ,URINE Trace (NEGATIVE); NITRITE, URINE Positive (NEGATIVE); PROTEIN,URINE 30 mg/dl (NEGATIVE); UGLUCOSE Negative (NEGATIVE); UROBILINOGEN,URINE 0.2 EU/dL (0.2)
[2020-12-26 18:32] LABS: RBC,URINE NONE SEEN /HPF (0-2)
[2020-12-26 18:33] LABS: BACTERIA,URINE 6 /HPF (None Seen); SQUAMOUS EPITHELIAL CELL,UR Few /HPF (None Seen)
[2020-12-26] MEDS ORDERED: CEPHALEXIN MONOHYDRATE 500 MG CAPSULE PO ONE ×2 (18:57→19:00)
[2020-12-26] MEDS ORDERED: CEPH-570 PO (19:16)
[2020-12-27 14:51] VITALS: BP 138/78
== END 2020-12-27 14:52 | disposition home or self-care (01) ==
LOC: ER 16:42
DX: N39.0 Urinary tract infection, site not specified (principal); R53.1 Weakness; R26.9 Unspecified abnormalities of gait and mobility; Z88.1 Allergy status to other antibiotic agents; Z88.2 Allergy status to sulfonamides; Z59.0 Homelessness; Z20.822 Contact with and (suspected) exposure to COVID-19; I10 Essential (primary) hypertension; R32 Unspecified urinary incontinence; E11.9 Type 2 diabetes mellitus without complications; Z79.899 Other long term (current) drug therapy; N28.9 Disorder of kidney and ureter, unspecified
CPT/HCPCS: 36415; 80048-TC; 80076-TC; 81001; 82962-TC; 83690-TC; 84484-TC; 85025-TC; 87086-TC; 87186-TC; C9803

== ENCOUNTER 2021-11-08 12:27 | Inpatient (IN) | payer MEDICARE, OTHER ==
[~2021-11-08] VITALS: Ht 165.1 cm; Wt 63.5 kg
[~2021-11-08 12:27] MED LIST changes: +CEPH-570 PO
--- NOTE | 2021-11-08 12:39 | NUR ---
PT [facility],NOTED BILATERAL LEG CELLULITIS,UNABLE TO TAKE CARE OF HERSELF. PT A/OX3. TOLERATING R/A WELL WITH NO SOB. CONNECTED PT TO MONITOR AND POX.
--- NOTE | 2021-11-08 12:43 | NUR ---
CALLED REVERSING MILL ROLLER. WILL BE AVAILABLE AT 1300.
--- NOTE | 2021-11-08 12:45 | NUR ---
[facility] CHANNEL LIP STIFFENER INSOLES FOR BILATERAL FOOT CELLULITIS X 2 WEEKS. AAOX4, BREATHING EVEN AND UNLABORED. ASSISTED TO ER BED 4. CHANNEL LIP STIFFENER INSOLES AT BEDSIDE.
[2021-11-08] MEDS ORDERED: CLINDAMYCIN HCL 150 MG CAPSULE PO ONE (13:00)
[2021-11-08] MEDS ORDERED: CLINDAMYCIN HCL 150 MG CAPSULE ONE (13:02)
--- NOTE | 2021-11-08 13:35 | NUR ---
[facility] CALLED SENIOR INFRASTRUCTURE ARCHITECT PAGED.
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
--- NOTE | 2021-11-08 13:43 | NUR ---
MOVE SHEET SUBMITTED AND CALLED FOR BED.
--- NOTE | 2021-11-08 14:00 | NUR ---
WILLIE TORRE (HOMELESS ENGAGEMENT MACHINE OVERHAULER) TO BE CONTACTED FRO UPDATES AT
--- NOTE | 2021-11-08 14:12 | NUR ---
L hand #22g s/l; patent and intact. supervisor frame sample and pattern at bedside and blood collected.
[2021-11-08 14:16] LABS: MEAN CORPUSCULAR HGB CONC 33 g/dl (31.0-36.0); MONOCYTES # (AUTO) 0.2 K/uL (0.1-1.30)
[2021-11-08 14:18] LABS: BASOPHILS % (AUTO) 0.2 % (0.0-2.0); EOSINOPHILS % (AUTO) 5.3 % (0.0-6.0); HEMATOCRIT 35 % (33-45); HEMOGLOBIN 11.4 g/dL (11.5-14.8); LYMPHOCYTES # (AUTO) 0.7 K/uL (0.8-4.8); MEAN CORPUSCULAR VOLUME 86 fL (82-100); MONOCYTES % (AUTO) 1.3 % (2.0-12.0); NEUTROPHILS # (AUTO) 10.6 K/uL (1.8-8.9); NEUTROPHILS % (AUTO) 87.2 % (43.0-81.0); PLATELET COUNT (AUTO) 274 K/uL (150-450); RED BLOOD CELL COUNT(AUTO) 4.06 MIL/uL (4.0-5.2); WHITE BLOOD COUNT (AUTO) 12.1 K/uL (4.3-11.0)
[2021-11-08 14:21] LABS: CALCIUM, SERUM 8.2 mg/dL (8.5-10.1); CREATININE 1.3 mg/dL (0.6-1.3); POTASSIUM 3.8 mmol/L (3.5-5.1)
--- NOTE | 2021-11-08 14:21 | NUR ---
GOT BED 106
--- NOTE | 2021-11-08 14:36 | NUR ---
REPORT GIVEN TO NURSE THOMPSON
--- NOTE | 2021-11-08 14:49 | NUR ---
COVID ANTIGEN AND PCR SWAB COLLECTED AND SENT TO LAB
--- NOTE | 2021-11-08 15:30 | NUR ---
AWAITING COVID ANTIGEN RESULTS. PT LAYING COMFORTABLY IN BED
[2021-11-08 16:00] VITALS: BP 90/64
--- NOTE | 2021-11-08 16:19 | NUR ---
PT TRANSFERRED TO [facility] PROTOCOL. ALL BELONGINGS WITH PT
--- NOTE | 2021-11-08 16:30 | NUR ---
RN NOTE RECEIVED PT FROM ED VIA SHAHRIAR. REPORT RECEIVED FROM ANA RN. PT AWAKE, ALERT/ORIENTED X 3, ON ROOM AIR WITH NO SOB OR ANY DISTRESS NOTED. IV LINE ON LEFT WRIST GAUGE 22. HEAD TO TOE ASSESSMENT COMPLETED, PHOTOS TAKEN OF WOUNDS. PATIENT STATES SHE HAS A HARD TIME SEEING, SHE'S BLIND. KEPT PATIENT CLEAN AND COMFORTABLE. ALL NEEDS MET. SAFETY MEASURES IMPLEMENTED. BED IN LOWEST POSITION, LOCKED WITH SIDERAILS UP X 2. CALL LIGHT WITHIN REACH. WILL CONTINUE TO MONITOR.
[2021-11-08] MEDS ORDERED: ONDANSETRON HCL/PF 4 MG/2 ML VIAL IVP PRN (17:30)
[2021-11-08] MEDS ORDERED: Z GUARD REMEDY 2 OZ OINT TP PRN (17:30)
[2021-11-08] MEDS ORDERED: MAGNESIUM HYDROXIDE 30 ML UDC PO PRN (17:30)
[2021-11-08] MEDS ORDERED: ZOLPIDEM TARTRATE 5 MG TABLET PO PRN (17:30)
[2021-11-08] MEDS ORDERED: MAG HYDROX/AL HYDROX/SIMETH 30 ML UDC PO PRN (17:30)
[2021-11-08] MEDS: CLINDAMYCIN HCL 150 MG CAPSULE PO SCH (18:07)
[2021-11-08] MEDS: ENOXAPARIN SODIUM 40 MG/0.4 ML DISP.SYRIN SQ SCH ×2 (18:09→20:27)
[2021-11-08] MEDS: ACETAMINOPHEN 325 MG TABLET PO PRN ×2 (18:30→20:27)
--- NOTE | 2021-11-08 18:46 | NUR ---
RN CLOSING NOTES NO SIGNIFICANT CHANGES THROUGHOUT THE SHIFT. ALL DUE MEDS GIVEN, TOLERATED WELL/ NO ADVERSE REACTIONS NOTED. NO SOB OR ANY DISTRESS NOTED. PATIENT KEPT DRY AND CLEAN. ALL NEEDS MET. ALL SAFETY MEASURES IMPLEMENTED. BED IN LOWEST POSITION, LOCKED WITH SIDE RAILS UP X 2. CALL LIGHT WITHIN REACH. WILL ENDORSE TO AGRICULTURAL EXTENSION OFFICER NURSE.
[2021-11-08 20:00] VITALS: BP 130/45
--- NOTE | 2021-11-08 20:06 | NUR ---
MS RN NOTE PT IN BED ASLEEP, AROUSBLE. NOTED PT WITH FEVER 100.6, BODY COOLING MEASURES APPLIED. ON ROOM AIR O2 SAT 93%. NO SOB NOTED. NO DISTRESS OR DISCOMFORT. REPOSITION HER IN BED. KEPT HER DRY AND CLEAN. ALL NEEDS ATTENDED. SIDE RAILS UP X 2 AND CALL LIGHT WITHIN REACH. CONTINUE TO MONITOR HER.
[2021-11-09] MEDS: CLINDAMYCIN HCL 150 MG CAPSULE PO SCH ×3 (00:04→12:29)
[2021-11-09 04:00] VITALS: BP 123/68
--- NOTE | 2021-11-09 07:30 | NUR ---
MS RN AM NOTE RECEIVED PT IN BED, AWAKE, ALERT/ORIENTED X 3, ON ROOM AIR WITH NO SOB OR ANY DISTRESS NOTED. DENIES PAIN AT THIS TIME, IV LINE ON LEFT WRIST GAUGE 22. FLUSHES WELL, SITE CLEAR. HEAD TO TOE ASSESSMENT COMPLETED, PATIENT STATES SHE HAS A HARD TIME SEEING, SHE'S BLIND. SEE NURSING FLOWSHEET FOR SKIN ISSUES. BLE CELLULITIS. FOR WOUND CONSULT. SAFETY MEASURES IMPLEMENTED. BED IN LOWEST POSITION, LOCKED WITH SIDERAILS UP X 2. CALL LIGHT WITHIN REACH. WILL CONTINUE TO MONITOR.
[2021-11-09] MEDS: PANTOPRAZOLE 40 MG TABLET.DR PO SCH (07:58)
[2021-11-09 08:00] VITALS: BP 154/65
--- NOTE | 2021-11-09 08:00 | NUR ---
RN NOTES PATENT WAS GIVEN HER BREAKFAST TRAY AND MEDICATION BUT SPIT OUT EVERYTHING AND REQUESTING FOR SOMETHING ELSE. NOTIFIED NUTRITION/KITCHEN AND ASKED APTIENT BUT SHE STILL INSIST WHAT SHE WANTED. NOW CLAIMING SHE WASNT GIVEN BREAKFAST. PATIENT IS ON CARDIAC DIET.
[2021-11-09] MEDS ORDERED: IV NS 0.9% 250 ML IV PRN (12:30)
--- NOTE | 2021-11-09 14:10 | NUR ---
RN NOTES PATIENT REFUSED ALL HER LAB DRAW. DR. DUMONT AT BEDSIDE EARLIER. AWARE. ORDERED FOR PSYCH CONSULT.
[2021-11-09] MEDS: IV NS 0.9% 1,000 ML IV PRN (15:59)
[2021-11-09 16:00] VITALS: BP 161/70
--- NOTE | 2021-11-09 19:05 | NUR ---
RN OPENING NOTES: RECEIVED PATIENT IN BED AWAKE, ALERT/ORIENTED X 2 AND VERBALLY RESPONSIVE. ON ROOM AIR SATURATING 97%. NO SOB, NO C/O CHEST CONGESTION, BREATHING EVEN AND UNLABORED. IV LINE ON LEFT WRIST #22G. INTACT AND PATENT. NO S/S OF INFILTRATIONS. DENIES ANY PAIN OR DISCOMFORT. NO ACUTE DISTRESS. SOFT RESTRAINT ON BOTH HAND TO PREVENT ANY FURTHER INJURY. ALL SAFETY MEASURE IN PLACE. SIDE RAILS ARE UP X2. BED IN LOW POSITION AND LOCKED. PLACE CALL LIGHT WITH IN REACH. WILL CONTINUE TO MONITOR
--- NOTE | 2021-11-09 19:17 | NUR ---
RN NOTES ALL NEEDS MET AT THIS TIME. PATIENT PLACED ON RESTRAINT DUE TO TRYING TO GET OUT OF BED AND PULLING IVF. INFORMED CELESTE- EMERGENCY LEAD WAREHOUSE ASSOCIATE [phone]. CONTINUES TO REFUSED ALL MEDICATIONS AND IV FLUIDS. SAFETY MEASURES IN PLACE. ENDORSED TO NEXT SHIFT FOR KEE.
[2021-11-09 20:00] VITALS: BP 114/78
[2021-11-09] MEDS ORDERED: CLINDAMYCIN PHOSPHATE IV 600 MG/4 ML VIAL IV SCH (21:00)
[2021-11-09] MEDS: CLINDAMYCIN 600 MG in IV D5W 50 ML IV SCH (21:06)
[2021-11-09] MEDS: ENOXAPARIN SODIUM 40 MG/0.4 ML DISP.SYRIN SQ SCH (21:10)
--- NOTE | 2021-11-09 21:40 | NUR ---
RN NOTES: PATIENT PULLED OUT THE IV SALINE LOCK. NEW PERIPHERAL IV ACCESS INSERTED ON RT HAND #22 G. NO S/S OF INFILTRATIONS.
[2021-11-10 04:00] VITALS: BP 120/59
--- NOTE | 2021-11-10 04:10 | NUR ---
RN NOTES: PATIENT'S IV SITE INFILTRATE. INSERTED NEW PERIPHERAL IV ACCESS ON LEFT FOREARM #22 G. NO S/S OF INFILTRATIONS NOTED
[2021-11-10] MEDS: CLINDAMYCIN 600 MG in IV D5W 50 ML IV SCH (04:22)
[2021-11-10] MEDS: IV NS 0.9% 1,000 ML IV PRN (06:28)
--- NOTE | 2021-11-10 06:41 | NUR ---
RN CLOSING NOTES: PATIENT SLEEPING IN BED, BUT EASILY AROUSABLE, ALERT/ORIENTED X 2 AND VERBALLY RESPONSIVE. ON ROOM AIR, O2 SATURATING 100%. BREATHING EVEN AND UNLABORED. AFEBRILE. NEW IV ACCESS ON LEFT FOREARM #22G, INTACT AND PATENT. NO S/S OF INFILTRATIONS. RUNNING NS 75CC/HR. ALL DUE MEDS GIVEN AND PATIENT TOLERATED WELL. DENIES ANY PAIN OR DISCOMFORT. NO ACUTE DISTRESS. SOFT RESTRAINTS ON BOTH HAND IN PLACE. ALL SAFETY MEASURE IN PLACE. SIDE RAILS ARE UP X2. BED IN LOW POSITION AND LOCKED. PLACE CALL LIGHT WITH IN REACH. WILL ENDORSE TO MORNING SHIFT NURSE.
--- NOTE | 2021-11-10 07:27 | NUR ---
RN OPEN NOTES: PATIENT RECEIVED AWAKE IN BED, ALERT/ORIENTED X 2 AND VERBALLY RESPONSIVE. ON ROOM AIR, O2 SATURATING 100%. BREATHING EVEN AND UNLABORED. AFEBRILE. IV ACCESS ON LEFT FOREARM #22G, INTACT AND PATENT. NO S/S OF INFILTRATIONS. RUNNING NS 75CC/HR. DENIES ANY PAIN OR DISCOMFORT. NO ACUTE DISTRESS. NO SOFT RESTRAINTS IN PLACE. ALL SAFETY MEASURE IN PLACE. SIDE RAILS ARE UP X2. BED IN LOW POSITION AND LOCKED. PLACE CALL LIGHT WITH IN REACH. WILL CONTINUE TO ASSESS, MONITOR AND KEE.
[2021-11-10] MEDS: PANTOPRAZOLE 40 MG TABLET.DR PO SCH (07:38)
--- NOTE | 2021-11-10 09:45 | NUR ---
RN NOTES PATIENT VERY COMBATIVE, AND VERY VERBALLY ABUSIVE, RIGHT AFTER EATING BREAKFAST, PATIENT DEMANDED, THAT SHE BE RELEASED FROM THIS HOSPITAL BECAUSE HER BOTH OF HER LEGS IS OT GETTING BETTER, EXPLAINED TO HER THAT SHE BARELY STARTED ON ANTIBIOTICS YESTERDAY AND GIVE IT A TIME TO THE MEDICATION TO REACH ITS PEAK EFFECT, AND THAT IT DOESN'T GIVE INSTANT RESULT. BUT STILL PATIENT INSISTED TO LEAVE THE PREMISES. DR. SCHMIDT NOTIFIED BY CHARGE NURSE. NURSING TRAVEL DIRECTOR NOTIFIED. PATIENT REFUSED TO SIGN AGAINST MEDICAL ADVISE PAPERS. SARAH CAMILO DIRECTOR RN,K SIGNED FOR THE PATIENT.
--- NOTE | 2021-11-10 11:05 | NUR ---
RN NOTES PATIENT LEFT AMA, ACCOMPANIED BY DONOVAN COX TO LOBBY WITH HER ROLATOR. PATIENT TALKED TO HER EMERGENCY METER SHOP SUPERVISOR CELESTE AND HAD ARGUMENT WITH HIM PATIENT OPTED TO GO TO THE STREET. REFUSED TO SIGN AMA PAPER. ALL BELONGINGS RETURNED. MD DR. DUMONT, NURSING LAN/WAN ENGINEER SARAH MUNGUIA AWARE. INCIDENT REPORT FILED Unique Id: [id number]
--- NOTE | 2021-11-10 12:30 | NUR ---
Pt. wanted to leave AMA and does not want to continue her stay at the hospital. Pt. requested a taxi to go to [facility] [employer] [[address] [place] [address]]. director approved. SW got pt. a taxi [[phone]] and signed voucher. Pt. can navigate the streets and is safe to be discharged from hospital. [facility] charge nurse was notified of this situation. Pt. was not willing to sign homeless waiver and denied resources.
[2021-11-10 12:51] VITALS: BP 114/67
== END 2021-11-10 13:11 | disposition left against medical advice (07) | DRG 603 ==
LOC: ER 12:50 → MEDSG1 14:23
PROVIDERS: ADMIT Student in an Organized Health Care Education/Training Program; ATTEND Student in an Organized Health Care Education/Training Program
DX: L03.115 Cellulitis of right lower limb (principal); F31.64 Bipolar disorder, current episode mixed, severe, with psychotic features; R62.7 Adult failure to thrive; L03.116 Cellulitis of left lower limb; E86.0 Dehydration; Z59.00 Homelessness unspecified; E78.5 Hyperlipidemia, unspecified; E11.9 Type 2 diabetes mellitus without complications; Z20.822 Contact with and (suspected) exposure to COVID-19; I10 Essential (primary) hypertension; R32 Unspecified urinary incontinence; R26.9 Unspecified abnormalities of gait and mobility; Z98.890 Other specified postprocedural states; Z88.1 Allergy status to other antibiotic agents; Z88.2 Allergy status to sulfonamides; R79.89 Other specified abnormal findings of blood chemistry; H54.7 Unspecified visual loss; Z87.891 Personal history of nicotine dependence
CPT/HCPCS: 36415; 80048-TC; 85025-TC; 87081-TC; 97116-TC; 97530-TC; G0378; J1650; J3490; J7030; J7050; J7060; U0003

== ENCOUNTER 2022-12-06 17:53 | Inpatient (IN) | payer MEDICARE, OTHER ==
[~2022-12-06] VITALS: Ht 160 cm; Wt 61.7 kg
--- NOTE | 2022-12-06 18:44 | NUR ---
MOVE SHEET SUBMITTED.
[2022-12-06] MEDS ORDERED: IV NS 0.9% 1,000 ML BAG IV ONE (19:00)
[2022-12-06] MEDS ORDERED: CEFAZOLIN 1 GM in IV D5W 50 ML IV ONE (19:00)
[2022-12-06] MEDS ORDERED: MORPHINE SULFATE INJ 2 MG/ML DISP.SYRIN IV ONE (19:00)
[2022-12-06] MEDS ORDERED: ACETAMINOPHEN ES 500 MG TABLET PO ONE (19:00)
--- NOTE | 2022-12-06 19:36 | NUR ---
L HAND #20G S/L CLIENT SERVER DEVELOPER AT PT'S BEDSIDE
--- NOTE | 2022-12-06 19:38 | NUR ---
covid swab collected
[2022-12-06] MEDS ORDERED: MORPHINE SULFATE INJ 2 MG/ML DISP.SYRIN ONE (19:41)
[2022-12-06 19:55] LABS: CALCIUM, SERUM 8.5 mg/dL (8.5-10.1); CARBON DIOXIDE 29 mmol/L (21-32); CHLORIDE 104 mmol/L (98-107); CREATININE 1.4 mg/dL (0.6-1.3); GLUCOSE 108 mg/dL (74-106); POTASSIUM 4.4 mmol/L (3.5-5.1); SODIUM SERUM 140 mmol/L (136-145); UREA NITROGEN, BLOOD 36 mg/dL (7-18)
--- NOTE | 2022-12-06 19:55 | NUR ---
[facility] P[facility]ED
[2022-12-06 20:09] LABS: ALANINE AMINOTRANSFERASE 12 U/L (12-78); ALBUMIN 3.5 g/dL (3.4-5.0); ALKALINE PHOSPHATASE 104 U/L (46-116); ASPARTATE AMINOTRANSFERASE 21 U/L (15-37); BILIRUBIN,DIRECT 0.1 mg/dL (0.0-0.2); BILIRUBIN,TOTAL 0.3 mg/dL (0.2-1.0); TOTAL PROTEIN, SERUM 7.5 g/dL (6.4-8.2)
[2022-12-06 20:12] LABS: BASOPHILS # (AUTO) 0.1 K/uL (0.0-0.2); BASOPHILS % (AUTO) 0.5 % (0.0-2.0); EOSINOPHILS % (AUTO) 1.7 % (0.0-6.0); HEMATOCRIT 37 % (33-45); LYMPHOCYTES # (AUTO) 1.4 K/uL (0.8-4.8); LYMPHOCYTES % (AUTO) 10.6 % (20.0-44.0); MEAN CORPUSCULAR HGB CONC 32 g/dl (31.0-36.0); MEAN CORPUSCULAR VOLUME 86 fL (82-100); MONOCYTES # (AUTO) 0.7 K/uL (0.1-1.30); MONOCYTES % (AUTO) 5.2 % (2.0-12.0); NEUTROPHILS # (AUTO) 10.8 K/uL (1.8-8.9); PLATELET COUNT (AUTO) 318 K/uL (150-450); RED BLOOD CELL COUNT(AUTO) 4.33 MIL/uL (4.0-5.2); WHITE BLOOD COUNT (AUTO) 13.1 K/uL (4.3-11.0)
--- NOTE | 2022-12-06 21:08 | NUR ---
lab called, per tech they do not have covid swab
--- NOTE | 2022-12-06 21:24 | NUR ---
pt refused mrsa
--- NOTE | 2022-12-06 22:28 | NUR ---
REPORT GIVEN TO OFILA
--- NOTE | 2022-12-06 23:53 | NUR ---
PT TRANSFERRED TO [facility]- VIA HOSPITAL PROTOCOL. VSS
[2022-12-06 23:55] VITALS: BP 144/68
[2022-12-07] VITALS: BP 144/68
[2022-12-07] MEDS ORDERED: MAGNESIUM HYDROXIDE 30 ML UDC PO PRN
[2022-12-07] MEDS ORDERED: ONDANSETRON HCL/PF 4 MG/2 ML VIAL IVP PRN
[2022-12-07] MEDS ORDERED: ZOLPIDEM TARTRATE 5 MG TABLET PO PRN
[2022-12-07] MEDS ORDERED: Z GUARD REMEDY 4 OZ OINT TP PRN
[2022-12-07] MEDS ORDERED: HYDROCODONE/APAP 5/325MG TABLET PO PRN
[2022-12-07] MEDS ORDERED: ACETAMINOPHEN 325 MG TABLET PO PRN
[2022-12-07] MEDS ORDERED: MAG HYDROX/AL HYDROX/SIMETH 30 ML UDC PO PRN
--- NOTE | 2022-12-07 | NUR ---
MS CONTACT ASSEMBLER NOTES RECEIVED FORM ER PER SHAHRIAR THIS 77 YO FEMALE,CHIEF COMPLAINTS OF RIGHT ANKLE PAIN WITH REDNESS,DX- FROSBITE.ALERT,ORIENTED X3-4,ABLE TO STATE HER NAME,YEAR AND PLACE WHERE SHE WAS( [facility] )HOMELESS,NOTED BILATERAL REDNESS ON LOWER LEGS,SKIN ABRASION ON RIGHT FOOT.SCRATCHES ON MIDBACK,BUTTOCK, AND RIGHT LOWER ABDOMEN,REDNESS ON LEFT ELBOW.WITH SALINE LOCK LEFT HAND INTACT AND PATENT.PATIENT CLAIMED SHE BLIND,ONLY SEE SHADOW.UNVACCINATED WITH COVID VACCINE.REFUSED FLU AND PNA SHOT.CLAIMED SHE DOESNT NEED AND NEVER HAVE IT.FALL PRECAUTION OBSERVED.BED ON LOWEST POSITION AND LOCKED,BED ALARM TRIGGERED.AMBULATE WITH WALKER.CALL LIGHT IN REACH,NEEDS ANTICIPATED.
--- NOTE | 2022-12-07 00:30 | NUR ---
MS RN NOTES MD VISIT SEEN BY DR DUMONT,, WITH NEW ORDERS NOTED AND CARRIED OUT.
--- NOTE | 2022-12-07 01:00 | NUR ---
MS RN NOTES STARTED ON IVF 1/2 NS AT 75ML/HR RATE ORDERED.
[2022-12-07] MEDS: IV 1/2NS 1000 ML 1,000 ML IV PRN ×2 (01:09→19:00)
[2022-12-07] MEDS ORDERED: CEFEPIME 1 GM VIAL ONE (01:53)
[2022-12-07] MEDS ORDERED: CEFEPIME 1 GM in IV D5W 50 ML IV ONE (02:00)
--- NOTE | 2022-12-07 02:14 | NUR ---
MS RN NOTES STARTED ON CEFEPIME 1GM IN D5W 50ML INFUSING AT 10ML/HR RATE VIA IV PUMP.
[2022-12-07 06:23] LABS: BASOPHILS # (AUTO) 0.1 K/uL (0.0-0.2); BASOPHILS % (AUTO) 0.8 % (0.0-2.0); EOSINOPHILS % (AUTO) 3.2 % (0.0-6.0); HEMATOCRIT 34 % (33-45); HEMOGLOBIN 11.1 g/dL (11.5-14.8); LYMPHOCYTES # (AUTO) 1.4 K/uL (0.8-4.8); LYMPHOCYTES % (AUTO) 16.3 % (20.0-44.0); MEAN CORPUSCULAR HGB CONC 33 g/dl (31.0-36.0); MEAN CORPUSCULAR VOLUME 86 fL (82-100); MONOCYTES # (AUTO) 0.7 K/uL (0.1-1.30); MONOCYTES % (AUTO) 7.6 % (2.0-12.0); NEUTROPHILS # (AUTO) 6.3 K/uL (1.8-8.9); NEUTROPHILS % (AUTO) 72.1 % (43.0-81.0); PLATELET COUNT (AUTO) 276 K/uL (150-450); RED BLOOD CELL COUNT(AUTO) 3.96 MIL/uL (4.0-5.2); WHITE BLOOD COUNT (AUTO) 8.7 K/uL (4.3-11.0)
--- NOTE | 2022-12-07 06:55 | NUR ---
MS RN NOTES ON BED SLEEPING.IVF INFUSING WELL ON LEFT HAND,WOUND CARE NURSE TO SEE PATIENT TODAY.IV ABX GIVEN WITHOUT SIDE EFFECTS NOTED.IN NO ACUTE DISTRESS.
[2022-12-07 07:15] LABS: CREATININE 1.2 mg/dL (0.6-1.3); MAGNESIUM 2.3 mg/dL (1.8-2.4); PHOSPHORUS 4.4 mg/dL (2.5-4.9); POTASSIUM 4.3 mmol/L (3.5-5.1)
[2022-12-07 07:23] LABS: THYROID STIMULATING HORMONE 3.217 uIU/mL (0.358-3.74)
[2022-12-07 08:00] VITALS: BP 153/55
--- NOTE | 2022-12-07 08:24 | NUR ---
WOUND CARE CONSULT: PT PRESENTS WITH SCRATCH LINK ON SKIN INCLUDING BUTTOCKS WELL REDNESS/RASH TO BUTTOCKS WITH LOWER LEG/FOOT REDNESS AND LONG TOENAILS, PRESENT ON ADMISSION. DPM CONSULT CALLED. IN AGREEMENT WITH PLAN OF CARE. Addendum: 12/07/22 at [address] PALOMINO NOTIFIED OF DPM CONSULT.
[2022-12-07] MEDS: ENOXAPARIN SODIUM 30 MG/0.3 ML DISP.SYRIN SQ SCH (09:17)
[2022-12-07] MEDS: CLOTRIMAZOLE 1% 15 GM TUBE TP SCH ×2 (09:18→17:00)
[2022-12-07] MEDS: MUPIROCIN OINT 2% 22 GM TUBE TP SCH ×2 (10:00→22:21)
--- NOTE | 2022-12-07 15:04 | NUR ---
SS consult: SS Consult requested for homelessness. The pt. is a 77-year-old female pt. who was admitted to [facility] due to Lower extremity cellulitis per EMR. Upon SS consult, the pt. is Alert & Oriented x 4 and makes poor eye contact. 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 The pt. appears unkempt and is malodorous. Pt. has depressed mood & affect. Pt.s speech is slurred possibly secondary to missing teeth and thought process is WNL. Pt. remained calm & cooperative throughout interview. Pt. denies SI/HI and states denies hallucinations. SW explored pt.s living situation. Patient states she is currently experiencing homelessness and has for many years and has been staying on the street. SW explored pt.s drug & ETOH use. Pt. denies any drug or alcohol use. Pt. stated that she has no children and her partner dies in 2020 and has no support system. Per pt. she is ambulatory with walker and it is at bedside. The pt. stated he is independent with all her ADLs. Plan: SW provided pt. with the following homeless resources and pt. accepted them Pt. was agreeable to using homeless resources to find fpc placement. Pt. unable to sign homeless waiver and it was placed in the pt.s chart. Year-round shelters: [place] [facility] [address] [place], [place] [id number] ; [facility] [address] [place] [address]; [place] [facility] [id number] [facility]. [facility] [address] Hygiene: [facility]: [address] [place] ; [place] [facility] [address] [facility] ; [facility] [address] . Food Resources: [place] [facility] at [facility]- [address] [place]; Meet Each Need with Dignity (MEND) [address] [place]; [facility] [address] [facility]; [facility] [address]. Mental Health resources provided: [facility] [address] [place], [place] [address] ; [facility] [address] [facility] [address], [place], [place] [phone] ; [facility] [address] [facility] [address] [place], [place] [phone] ; [facility] [address] [place], [place] [address] Healthcare Clinics: [facility] [address] [facility], [address] [place] ; [facility] [address] [facility] [address] [place] [address]; [facility] [address] [facility] [place] [address] [phone] Counseling--Outpatient [facility] [address] [facility], [place] [address] (Specializes in in-depth psychotherapy for emotional distress: anxiety, depression, interpersonal conflicts, life transitions, childhood abuse) [facility] [address] [place] [address] (Assist with solving problem marital difficulties, separation & divorce, aging parents, & grief, chronic & terminal illness) [facility] [address] [place] [address] (Deal with loss & grief, anxiety, marital difficulties) Homebound/Mental Health Services [address] [facility], [address] [place], [place] [address] (Provide in-home mental services to people who are incapable of leaving their homes) [facility] Elder[facility] Senior Service/Resource Center [address] [facility] [address] [facility] [address] [facility]. [place], [place] [id number] PSYCHIATRIC OUTPATIENT SERVICES [facility] Partial Hospitalization and Intensive Outpatient Program (Managed Care and [place] Only)[address] [facility] [phone] [facility] Partial Hospitalization and Outpatient [id number] [place], [place] [phone] EDI LEA [facility] [id number] [facility]. [address] [place], [place] [phone] [facility] Partial Hospitalization and Outpatient [id number] [facility] Edi Lea, [phone] Substance Abuse resources provided included: [facility] Substance Abuse Self-Helpline ([facility]) ; [facility]LP [address] [facility]. [place] [address] ; [facility] [address] [facility] [address] ; [facility] Rehabilitation Program [address] [facility] [address] ; [facility] [address] [facility] [phone] ; [facility] [address] [facility] [phone] ; [facility] [address] [facility] [phone] ; [facility] Substance Abuse Helpline([facility])-[facility] ; [facility] ; [facility] [place]; [facility] [place]; [facility] [place]; [facility] Edi Lea; [facility]; [facility]; [facility] [employer] [facility]; [facility] Pilar Hood; Alcoholics Anonymous -SFV; [place] ; Marijuana Anonymous -SFV; Narcotics Anonymous www.na.org;
[2022-12-07 16:00] VITALS: BP 124/42
[2022-12-07 20:00] VITALS: BP 118/48
[2022-12-08] MEDS ORDERED: CEFEPIME 2 GM in IV D5W 100 ML IV SCH (02:00)
--- NOTE | 2022-12-08 07:30 | NUR ---
MS RN OPENING NOTES RECEIVED PATIENT ON BED RESTING AND A/O X3. ON ROOM AIR TOLERATING WELL. NO SOB NOTED. NOT IN DISTRESS. WITH NO COMPLAINTS OF PAIN OR DISCOMFORT AT THIS TIME. WITH IV ACCESS AT THE LEFT HAND G20 WITH IVF NS AT 75ML/HR INFUSING WELL. SAFETY MEASURES IN PLACED. CALL LIGHT WITHIN REACH. BED ON LOWEST LOCKED POSITION, SIDE RAILS UP X2. WILL CONTINUE TO MONITOR.
[2022-12-08 08:00] VITALS: BP 126/46
--- NOTE | 2022-12-08 08:00 | NUR ---
RN NOTE PATIENT REFUSED BLOOD DRAW. ENCOURAGED FOR BLOOD DRAW AND GAVE EDUCATION ON THE IMPORTANCE OF IT BUT STILL REFUSED.
[2022-12-08] MEDS: ENOXAPARIN SODIUM 30 MG/0.3 ML DISP.SYRIN SQ SCH (09:00)
--- NOTE | 2022-12-08 09:00 | NUR ---
RN NOTE PATIENT REFUSED LOVENOX MED SQ. EXPLAINED IMPORTANCE OF THE MEDICATION BUT STILL REFUSED.
--- NOTE | 2022-12-08 09:00 | NUR ---
RN NOTE PATIENT YELLING AND SCREAMING BY THE PATIENT'S ROOM DOOR AND NAKED. SHE REMOVED IV LINE AND REFUSED FOR IV REINSERTION. WILL MONITOR.
[2022-12-08] MEDS: CLOTRIMAZOLE 1% 15 GM TUBE TP SCH ×2 (09:10→16:39)
[2022-12-08] MEDS: MUPIROCIN OINT 2% 22 GM TUBE TP SCH ×2 (10:16→16:39)
[2022-12-08 16:00] VITALS: BP 119/72
--- NOTE | 2022-12-08 18:30 | NUR ---
MS RN CLOSING NOTES PATIENT ON BED RESTING AND A/O X3, NON COMPLIANT, YELLING AND SCREAMING. ON ROOM AIR TOLERATING WELL. NO SOB NOTED. NOT IN DISTRESS. WITH NO IV ACCESS, PATIENT REFUSED FOR IV REINSERTION. DOESN'T LISTEN WHEN GIVEN EXPLANATION ON THE IMPORTANCE OF IV LINE FOR IV ANTIBIOTIC TREATMENT. SAFETY MEASURES IN PLACED. CALL LIGHT WITHIN REACH. BED ON LOWEST LOCKED POSITION, SIDE RAILS UP X2. WILL ENDORSE TO NEXT SHIFT FOR KEE.
--- NOTE | 2022-12-08 19:00 | NUR ---
RN NOTE REPORTED TO DR. SWANSON THAT PATIENT STILL REFUSED FOR IV INSERTION AND IF SHE CAN CHANGE IV ANTIBIOTIC TO PO. DR. WSANSON ORDERED DOXYCYCLINE 100MG BID. ORDER CARRIED OUT.
[2022-12-08 20:00] VITALS: BP 145/70
[2022-12-08] MEDS: DOXYCYCLINE HYCLATE (100 MG) 100 MG TABLET PO SCH (20:00)
--- NOTE | 2022-12-08 20:10 | NUR ---
RN NOTES :PT. REFUSED VIBRAMYCIN 100 MG PO SCHEDULE MEDS AT 1999 , ENCOURAGED X3 RISKS AND BENEFITS EXPLIANED , PT. STRONGLY REFUSED AND BEHAVIOUR ANXIOUS UNCOOPERTIVE PARNOID , PER PT. STATES I AM NOT SICK ,I DONT NEED ANY MEDICATIONS.
[2022-12-08 22:00] VITALS: BP 132/70
--- NOTE | 2022-12-09 01:55 | NUR ---
RN NOTES: PATIENT ON BED RESTING AND A/O X 2-3, NON COMPLIANT WITH CARE AND MEDICATIONS,UNCOOPERTIVE EASILY AGITATED, PARANOID ,NONREDIREECTABLE, YELLING AND SCREAMING . ON ROOM AIR TOLERATING WELL. NO SOB NOTED. NOT IN DISTRESS. WITH NO IV ACCESS, PATIENT REFUSED FOR IV REINSERTION. STRONGLY REFUSED IV/PO MEDS , ENCOURAGED BUT DOESN'T LISTEN WHEN GIVEN EXPLANATION ON THE IMPORTANCE OF IV LINE FOR IV ANTIBIOTIC TREATMENT. SAFETY MEASURES IN PLACED. CALL LIGHT WITHIN REACH. WILL CONTINUITY WITH CARE.
--- NOTE | 2022-12-09 05:49 | NUR ---
RN NOTES: PATIENT REFUSED AM HYGINE CARE, OFFERD TO CHANGE BREANNA GORDON ,PER PT. STATES GET OUT OF MY ROOM NON COMPLIANT WITH CARE AND MEDICATIONS,UNCOOPERTIVE EASILY AGITATED, PARANOID ,NONREDIREECTABLE, YELLING AND SCREAMING .
--- NOTE | 2022-12-09 07:51 | NUR ---
RN OPENING NOTE RECEIVED PATIENT SLEEPING IN BED, AO X 2-3. ABLE TO RESPONDS ALL STIMULI. RESPIRATORY EVEN AND UNLABORED ON ROOM AIR. IN NO ACUTE DISTRESS OBSERVED. SKIN IS WARM TO TOUCH, KEEP CLEAN/DRY. KEPT ELEVATED HOB FOR ASPIRATION PRECAUTION/ENSURE AIRWAY, ALSO LOWEST BED POSITIONED. BED ALARM IS ON AT ALL THE TIME FOR SAFETY. CALL LIGHT WITHIN REACH, WILL CONTINUE TO MONITOR.
[2022-12-09] MEDS: CLOTRIMAZOLE 1% 15 GM TUBE TP SCH (09:00)
[2022-12-09] MEDS: DOXYCYCLINE HYCLATE (100 MG) 100 MG TABLET PO SCH (09:00)
[2022-12-09] MEDS: ENOXAPARIN SODIUM 30 MG/0.3 ML DISP.SYRIN SQ SCH (09:00)
[2022-12-09] MEDS: MUPIROCIN OINT 2% 22 GM TUBE TP SCH (10:00)
[2022-12-09] MEDS ORDERED: DOXY100T2 PO (11:45)
[2022-12-09] MEDS ORDERED: CLOT15CR35 TP (11:45)
[2022-12-09 13:53] VITALS: BP 154/63
--- NOTE | 2022-12-09 13:56 | NUR ---
PATIENT D/C TO [facility] AND GIVEN REPORT TO HARI/CHRIS.
--- NOTE | 2022-12-09 14:50 | NUR ---
2EMTs PICKED UP PATIENT AND GIVEN REPORT. PATIENT REFUSED WOUND CARE AND TAKE WOUND PICTURES. COLLECTED RAPID COVID TEST SAMPLE AND DROPPED TO THE LAB BEFORE PATIENT LEAVE. PATIENT IN STABLE, IN NO ACUTE DISTRESS OBSERVED, LEFT FACILITY WITH ALL HER BELONGINGS.
== END 2022-12-09 14:50 | DRG 871 ==
LOC: ER 17:58 → MED 22:25
PROVIDERS: ADMIT Student in an Organized Health Care Education/Training Program; ATTEND Nurse Practitioner Acute Care
DX: A41.9 Sepsis, unspecified organism (principal); G93.41 Metabolic encephalopathy; N17.0 Acute kidney failure with tubular necrosis; L03.115 Cellulitis of right lower limb; L97.319 Non-pressure chronic ulcer of right ankle with unspecified severity; Z20.822 Contact with and (suspected) exposure to COVID-19; I10 Essential (primary) hypertension; R32 Unspecified urinary incontinence; Z59.00 Homelessness unspecified; R26.9 Unspecified abnormalities of gait and mobility; Z98.890 Other specified postprocedural states; E11.65 Type 2 diabetes mellitus with hyperglycemia; E78.5 Hyperlipidemia, unspecified; F29 Unspecified psychosis not due to a substance or known physiological condition; Z87.891 Personal history of nicotine dependence; Z88.1 Allergy status to other antibiotic agents; Z88.2 Allergy status to sulfonamides; F25.0 Schizoaffective disorder, bipolar type; Z53.20 Procedure and treatment not carried out because of patient's decision for unspecified reasons; Z86.73 Personal history of transient ischemic attack (TIA), and cerebral infarction without residual deficits; Z91.199 Patient's noncompliance with other medical treatment and regimen due to unspecified reason; Z91.14 Patient's other noncompliance with medication regimen; H54.8 Legal blindness, as defined in USA; E11.622 Type 2 diabetes mellitus with other skin ulcer; L97.519 Non-pressure chronic ulcer of other part of right foot with unspecified severity; X31.XXXA Exposure to excessive natural cold, initial encounter; Y92.9 Unspecified place or not applicable
CPT/HCPCS: 36415; 80048-TC; 80076-TC; 83605-TC; 83735-TC; 84100-TC; 84443-TC; 85025-TC; 87040-TC; 93971-TC; 97112-TC; 97116-TC; 97530-TC; C9803; G0378; J0690; J0692; J1650; J2270; J3490; J7060

== ENCOUNTER 2023-05-07 15:37 | Inpatient (IN) | payer MEDICARE, OTHER ==
[~2023-05-07] VITALS: Ht 162.6 cm; Wt 64.9 kg
[~2023-05-07 15:37] MED LIST changes: -AMOX250C PO; -CEPH-570 PO; +LISI10TA29 PO; -MUPI22OI7; -OLAN5TAB6 PO; +PANT40TA49 PO; -VITA1TAB56 PO
[2023-05-07] MEDS ORDERED: CLINDAMYCIN 900 MG in IV D5W 100 ML IV ONE (16:30)
[2023-05-07] MEDS ORDERED: IV NS 0.9% 1,000 ML BAG IV ONE (16:30)
[2023-05-07 17:39] LABS: BASOPHILS # (AUTO) 0.1 K/uL (0.0-0.2); BASOPHILS % (AUTO) 0.6 % (0.0-2.0); EOSINOPHILS % (AUTO) 1.8 % (0.0-6.0); HEMATOCRIT 36 % (33-45); HEMOGLOBIN 11.5 g/dL (11.5-14.8); LYMPHOCYTES # (AUTO) 1.1 K/uL (0.8-4.8); LYMPHOCYTES % (AUTO) 11.7 % (20.0-44.0); MEAN CORPUSCULAR HGB CONC 32 g/dl (31.0-36.0); MEAN CORPUSCULAR VOLUME 86 fL (82-100); MONOCYTES # (AUTO) 0.6 K/uL (0.1-1.30); MONOCYTES % (AUTO) 6.6 % (2.0-12.0); NEUTROPHILS # (AUTO) 7.7 K/uL (1.8-8.9); NEUTROPHILS % (AUTO) 79.3 % (43.0-81.0); PLATELET COUNT (AUTO) 334 K/uL (150-450); RED BLOOD CELL COUNT(AUTO) 4.13 MIL/uL (4.0-5.2); WHITE BLOOD COUNT (AUTO) 9.7 K/uL (4.3-11.0)
[2023-05-07 17:58] LABS: CREATININE 1.3 mg/dL (0.6-1.3); POTASSIUM 4.1 mmol/L (3.5-5.1)
[2023-05-07] MEDS ORDERED: ONDANSETRON HCL/PF 4 MG/2 ML VIAL IVP PRN (18:00)
[2023-05-07] MEDS ORDERED: DOXYCYCLINE 100 MG in IV D5W 100 ML IV ONE (18:00)
[2023-05-07] MEDS ORDERED: CLINDAMYCIN IV RTU IN D5W 900 MG/50 ML PIGGYBACK IV SCH (18:00)
[2023-05-07] MEDS ORDERED: MAGNESIUM HYDROXIDE 30 ML UDC PO PRN (18:00)
[2023-05-07] MEDS ORDERED: Z GUARD REMEDY 4 OZ OINT TP PRN (18:00)
[2023-05-07] MEDS ORDERED: MAG HYDROX/AL HYDROX/SIMETH 30 ML UDC PO PRN (18:00)
[2023-05-07 18:03] LABS: ALBUMIN 3.5 g/dL (3.4-5.0); BILIRUBIN,DIRECT 0.1 mg/dL (0.0-0.2); BILIRUBIN,TOTAL 0.3 mg/dL (0.2-1.0); TOTAL PROTEIN, SERUM 7.5 g/dL (6.4-8.2)
[2023-05-07] MEDS ORDERED: CEFAZOLIN 500 MG VIAL IV SCH (20:00)
[2023-05-07] MEDS ORDERED: DEXTROSE IV SCH ×4 (20:00→20:30)
[2023-05-07] MEDS ORDERED: CEFAZOLIN IV SCH ×4 (20:00→20:30)
--- NOTE | 2023-05-07 20:25 | NUR ---
HANDOFF REPORT GIVEN TO NIMESH PEREZ FOR INPATIENT SERVICES.
--- NOTE | 2023-05-07 20:34 | NUR ---
MS RN NOTE ADMITTED PT FROM ER 78 YEARS OLD FEMALE WITH THE DX OF CELLULITIS BY DR LANCASTER. PT IS A/O X 4, NO SOB NOTED. PT C/O PAIN IN HER BUTTOCK AREA 02/08. STATES "I AM TOLERATING IT OK FOR NOW". SKIN ASSESSMENT DONE. PICTURES TAKEN AND PLACE THEM IN THE CHART. WOUND CONSULT TRIGGERED. PT IS HARD STICK PER ER NURSE AND HAS LT HAND #20 G SL INTACT AND PATENT. INFORMED DR GALEANA THAT PT IS HARD STICK NEW ORDER OF MIDLINE RECEIVED AND CARRIED OUT. DUE MEDS GIVEN. ALL NEEDS ATTENDED. VSS. CONTINUE TO MONITOR HER.
--- NOTE | 2023-05-07 20:45 | NUR ---
MS RN NOTE TYLENOL 650 MG PO GIVEN FOR BUTTOCK PAIN 02/08. CONTINUE TO MONITOR HER.
[2023-05-07] MEDS: ANCEF 1 GM/50 ML D5W IV SCH ×2 (20:46)
[2023-05-07] MEDS: IV NS 0.9% 1,000 ML IV PRN (20:47)
[2023-05-07] MEDS: ENOXAPARIN SODIUM 40 MG/0.4 ML DISP.SYRIN SQ SCH (20:47)
--- NOTE | 2023-05-07 20:50 | NUR ---
MS RN NOTE MID LINE NURSE JONATHAN INSERTED BETH MIDLINE #18 G WITH GOOD BACK FLOW OF BLOOD.
[2023-05-07 21:00] VITALS: BP 151/69
[2023-05-07] MEDS: ACETAMINOPHEN 325 MG TABLET PO PRN (21:11)
[2023-05-07] MEDS ORDERED: HYDROCODONE/APAP 5/325MG TABLET PO PRN (22:00)
[2023-05-08 04:00] VITALS: BP 131/71
[2023-05-08 06:31] LABS: BASOPHILS # (AUTO) 0.1 K/uL (0.0-0.2); BASOPHILS % (AUTO) 1.5 % (0.0-2.0); EOSINOPHILS % (AUTO) 4.2 % (0.0-6.0); HEMATOCRIT 29 % (33-45); HEMOGLOBIN 9.5 g/dL (11.5-14.8); LYMPHOCYTES # (AUTO) 1.7 K/uL (0.8-4.8); LYMPHOCYTES % (AUTO) 23.5 % (20.0-44.0); MEAN CORPUSCULAR HGB CONC 33 g/dl (31.0-36.0); MEAN CORPUSCULAR VOLUME 85 fL (82-100); MONOCYTES # (AUTO) 0.5 K/uL (0.1-1.30); MONOCYTES % (AUTO) 7.2 % (2.0-12.0); NEUTROPHILS # (AUTO) 4.7 K/uL (1.8-8.9); NEUTROPHILS % (AUTO) 63.6 % (43.0-81.0); PLATELET COUNT (AUTO) 255 K/uL (150-450); RED BLOOD CELL COUNT(AUTO) 3.41 MIL/uL (4.0-5.2); WHITE BLOOD COUNT (AUTO) 7.4 K/uL (4.3-11.0)
--- NOTE | 2023-05-08 06:31 | NUR ---
MS RN NOTE PT IN BED ASLEEP, AROUSABLE. NO DISTRESS OR DISOCMFORT NOTED. DENIES PAIN. ALL NEEDS ATTENDED. SIDE RAILS UP X 3 AND CALL LIGHT WITHIN REACH. WILL ENDORSE TO DAY SHIFT CONTINUE TO CARE.
[2023-05-08] MEDS: PANTOPRAZOLE 40 MG TABLET.DR PO SCH (07:26)
[2023-05-08 07:58] LABS: CALCIUM, SERUM 7.8 mg/dL (8.5-10.1); CARBON DIOXIDE 24 mmol/L (21-32); CHLORIDE 112 mmol/L (98-107); CREATININE 1.1 mg/dL (0.6-1.3); GLUCOSE 100 mg/dL (74-106); MAGNESIUM 1.8 mg/dL (1.8-2.4); PHOSPHORUS 3.8 mg/dL (2.5-4.9); POTASSIUM 3.7 mmol/L (3.5-5.1); SODIUM SERUM 145 mmol/L (136-145); UREA NITROGEN, BLOOD 22 mg/dL (7-18)
[2023-05-08] MEDS: LISINOPRIL (10MG) 10 MG TABLET PO SCH (08:25)
[2023-05-08 16:00] VITALS: BP 145/82
--- NOTE | 2023-05-08 16:24 | NUR ---
PATIENT DISCHARGED TO HOME WITH THE , PATIENT IS IN STABLE CONDITION. IV LINE IS DISCONTINUE. Addendum: 05/08/23 at 1730 by GRAND JONATHAN PEREZ PATIENT IS NOT DISCHARGED
[2023-05-08] MEDS: PROSOURCE / PROSTAT (PYXIS) 30 ML UDC PO SCH (16:50)
[2023-05-08] MEDS: ENOXAPARIN SODIUM 40 MG/0.4 ML DISP.SYRIN SQ SCH (17:02)
--- NOTE | 2023-05-08 18:21 | NUR ---
CLOSING NOTE PATIENT IS ALERT, AWAKE, ORIENTEDX3, NO C/O PAIN, UNLABORED BREATHING ON 2L/MIN OF O2, VITAL SIGNS ARE STABLE, SAFETY MEASURES ARE IN PLACE, SIDE RAILS UPX3, BED IN LOW POSITION LOCKED, CALL LIGHT WITHIN REACH.
--- NOTE | 2023-05-08 19:30 | NUR ---
MS RN OPENING NOTE RECEIVED PATIENT FROM AM NURSE; PATIENT AWAKE IN BED, A/O X 4, ABLE TO MAKE NEEDS KNOWN; STABLE ON ROOM AIR, BREATHING EVENLY AND NO S/S OF DISTRESS NOTED; WITH IV ACCESS AT BETH ML G# 18 SALINE LOCK, AND LEFT HAND G#22 SALINE LOCK; ENCOURAGED VERBALIZATION OF NEEDS; SAFETY MEASURES IMPLEMENTED, BED LOCKED IN LOWEST POSITION, SIDE RAILS UP X 2, CALL LIGHT AND TABLE WITHIN REACH; WILL CONTINUE TO MONITOR THROUGHOUT SHIFT
[2023-05-08 20:00] VITALS: BP 132/65
[2023-05-08] MEDS: ANCEF 1 GM/50 ML D5W IV SCH ×2 (20:32)
[2023-05-08] MEDS: IV NS 0.9% 1,000 ML IV PRN (20:32)
[2023-05-08] MEDS: ACETAMINOPHEN 325 MG TABLET PO PRN (21:33)
--- NOTE | 2023-05-08 22:00 | NUR ---
MS RN NOTE PATIENT VERBALIZED PAIN WITH A SCORE OF 2/10 AND ASKED FOR PAIN MEDICATION; ADMINISTERED TYLENOL PRN ORDERED; PATIENT TOLERATED WELL AND WAS SEEN COMFORTABLY SLEEPING
[2023-05-09 03:53] VITALS: BP 130/60
[2023-05-09 06:37] LABS: BASOPHILS # (AUTO) 0.1 K/uL (0.0-0.2); BASOPHILS % (AUTO) 0.8 % (0.0-2.0); EOSINOPHILS % (AUTO) 3.9 % (0.0-6.0); HEMATOCRIT 31 % (33-45); HEMOGLOBIN 10.1 g/dL (11.5-14.8); LYMPHOCYTES # (AUTO) 1.5 K/uL (0.8-4.8); LYMPHOCYTES % (AUTO) 18.9 % (20.0-44.0); MEAN CORPUSCULAR HGB CONC 32 g/dl (31.0-36.0); MEAN CORPUSCULAR VOLUME 86 fL (82-100); MONOCYTES # (AUTO) 0.6 K/uL (0.1-1.30); MONOCYTES % (AUTO) 7.8 % (2.0-12.0); NEUTROPHILS # (AUTO) 5.3 K/uL (1.8-8.9); NEUTROPHILS % (AUTO) 68.6 % (43.0-81.0); PLATELET COUNT (AUTO) 239 K/uL (150-450); RED BLOOD CELL COUNT(AUTO) 3.65 MIL/uL (4.0-5.2); WHITE BLOOD COUNT (AUTO) 7.7 K/uL (4.3-11.0)
--- NOTE | 2023-05-09 06:48 | NUR ---
MS RN CLOSING NOTE PATIENT RESTING IN BED, A/O X 4, ABLE TO MAKE NEEDS KNOWN; STABLE ON ROOM AIR SATURATING 99-100%, BREATHING EVENLY AND NO S/S OF DISTRESS NOTED; WITH IV ACCESS AT BETH ML G# 18 RUNNING WITH NORMAL SALINE AT 75 ML/HR, AND LEFT HAND G#22 SALINE LOCK; ADMINISTERED MEDICATIONS PRESCRIBED; PATIENT'S NEEDS ATTENDED; MONITORED ACCORDINGLY; KEPT DRY AND COMFORTABLE; NO COMPLAINTS OF PAIN AND DISCOMFORT AT THIS TIME; SAFETY MEASURES IMPLEMENTED, BED LOCKED IN LOWEST POSITION, SIDE RAILS UP X 2, CALL LIGHT AND TABLE WITHIN REACH; WILL ENDORSE TO AM NURSE FOR KEE.
[2023-05-09 06:50] LABS: CALCIUM, SERUM 8.1 mg/dL (8.5-10.1); CREATININE 1.2 mg/dL (0.6-1.3); MAGNESIUM 1.8 mg/dL (1.8-2.4); PHOSPHORUS 3.8 mg/dL (2.5-4.9); POTASSIUM 3.7 mmol/L (3.5-5.1)
--- NOTE | 2023-05-09 07:00 | NUR ---
MS OPENING NOTE PATIENT RESTING IN BED, A/O X 4, ABLE TO MAKE NEEDS KNOWN. ON ROOM AIR SATURATING 95%. BREATHING EVENLY AND NO SOB, DISCOMFORT OR S/S OF DISTRESS NOTED. IV ACCESS AT BETH ML G# 18 RUNNING WITH NORMAL SALINE AT 75 ML/HR, AND LEFT HAND G#22 SALINE LOCK. WITH BLE AND BUTTOCKS REDNESS. SAFETY MEASURES IMPLEMENTED, BED LOCKED IN LOWEST POSITION, SIDE RAILS UP X 2, CALL LIGHT AND TABLE WITHIN REACH. WILL CONTINUE TO MONITOR.
[2023-05-09 07:25] LABS: EOSINOPHILS % (MANUAL) 1 % (0-4); LYMPHOCYTES % (MANUAL) 20 % (16-48); MONOCYTES % (MANUAL) 7 % (0-11.0); NEUTROPHILS % (MANUAL) 72 (42-76)
[2023-05-09] MEDS: PANTOPRAZOLE 40 MG TABLET.DR PO SCH (08:08)
[2023-05-09] MEDS: LISINOPRIL (10MG) 10 MG TABLET PO SCH (08:18)
[2023-05-09] MEDS: PROSOURCE / PROSTAT (PYXIS) 30 ML UDC PO SCH ×2 (08:43→16:30)
[2023-05-09] MEDS: IV NS 0.9% 1,000 ML IV PRN (09:15)
[2023-05-09] MEDS: ANCEF 1 GM/50 ML D5W IV SCH ×4 (11:55→18:45)
[2023-05-09 16:00] VITALS: BP 158/51
[2023-05-09] MEDS: ENOXAPARIN SODIUM 40 MG/0.4 ML DISP.SYRIN SQ SCH ×2 (17:01→17:12)
--- NOTE | 2023-05-09 17:13 | NUR ---
RN NOTE PATIENT REFUSED ENOXAPARIN. PATIENT TEACHINGS GIVEN REGARDING BENEFITS AND RISKS. PATIENT CONTINUES TO REFUSE.
--- NOTE | 2023-05-09 19:23 | NUR ---
MS CLOSING NOTE PATIENT AWAKE, ALERT AND ORIENTED X4 IN BED, ABLE TO MAKE NEEDS KNOWN. ON ROOM AIR SATURATING 98%. BREATHING EVENLY AND NO SOB, DISCOMFORT OR S/S OF DISTRESS NOTED. IV ACCESS AT BETH ML G# 18 RUNNING WITH NORMAL SALINE AT 75 ML/HR, AND LEFT HAND G#22 SALINE LOCK. WITH BLE AND BUTTOCKS REDNESS. PATIENT WAS REPOSITIONED EVERY TWO HOURS AND SKIN CARE WAS PROVIDED. SAFETY MEASURES IMPLEMENTED, BED LOCKED IN LOWEST POSITION, SIDE RAILS UP X 2, CALL LIGHT AND TABLE WITHIN REACH. REPORT GIVEN TO SHOP REPAIRER NURSE FOR CONTINUING OF CARE.
[2023-05-10] MEDS: ANCEF 1 GM/50 ML D5W IV SCH ×4 (03:38→11:07)
--- NOTE | 2023-05-10 06:38 | NUR ---
RADIO NEWS ANCHOR closing note PT is resting in bed, awake, breathing even and unlabored, no c/o pain, in stable condition, NAD noted this shift, will continue to monitor
--- NOTE | 2023-05-10 07:10 | NUR ---
EXECUTIVE HOUSEKEEPER OPENING NOTE PATIENT AWAKE, ORIENTED X3. 02 2LN/C 97%, NO S/S OF RESPIRATORY DISTRESS NOTED. RESTING IN BED AT PRESENT, PATIENT DENIES PAIN AT PRESENT. SAFETY MEASURES IN PLACE, BED LOCKED TO THE LOWEST POSITION, SIDE RAILS UPX3,,,CALL LIGHT, TABLE WITHIN REACH. CONT. TO MONITOR.
[2023-05-10] MEDS: PANTOPRAZOLE 40 MG TABLET.DR PO SCH (08:37)
[2023-05-10 08:40] VITALS: BP 157/45
[2023-05-10] MEDS: PROSOURCE / PROSTAT (PYXIS) 30 ML UDC PO SCH (08:41)
[2023-05-10] MEDS ORDERED: LISI10TA29 PO (08:47)
[2023-05-10] MEDS ORDERED: CEPH500C2 PO (08:50)
--- NOTE | 2023-05-10 08:50 | NUR ---
SPRAY MACHINE TENDER NOTE PATIENT REFUSED TO TAKE MORNING MEDICATION. PATIENT IS REQUESTING TO TALK TO THE PRINCIPAL PROCESS ENGINEER, BECAUSE SHE WANT TO KNOW WHERE SHE IS GOING. PATIENT STATED" LEAVE ME ALONE", I DO NOT WANT ANYTHING FROM YOU. NOTIFIED TO OUR CHARGE NURSE ARAMIS PEREZ.
[2023-05-10] MEDS ORDERED: LISINOPRIL (10MG) 10 MG TABLET PO SCH (09:00)
--- NOTE | 2023-05-10 12:00 | NUR ---
PATTERNMAKER HELPER NOTE PATIENT IS GETTING OUT OF BED BY HERSELF AND NOT CALLING FOR ASSISTANCE. PATIENT IS NOT FOLLOWING INSTRUCTIONS. PATIENT IS AGITATED, ASKING TO TALK TO THE PRODUCTION MECHANIC SOON POSSIBLE/ THE PRODUCTION MECHANIC IS HERE WITH THE PATIENT.
--- NOTE | 2023-05-10 13:11 | NUR ---
"SS consult: SS consult requested for homelessness. Pt. is a 78-year-old female who was brought in due to shouting and aggressive behavior. Upon SS consult, pt. was alert and oriented x2. Pt. presents with a dysphoric mood and heavy breathing. SW conducted the interview while the patient [place]. SW explored pt.s social support. Pt. expressed that she does not have any support or family at this time. Pt. also has no supportive contact in his chart. Pt. appeared to be somewhat confused at this time. Pt. stated he lives at [address] [place] [address]. Pt. stated he resides here, however, then changed his mind and stated he is homeless. Pt. unable to give further information due to pt breathing heavily and speech being unclear. Pt. currently weak and unable to walk due to COVID-19 diagnosis. SW unable to conduct assessment further due to pt. unable to share further information. Pt. just kept repeating yes or no unable to give correct information to this SW. Homeless waiver form was placed in the chart. DC Plan: Pt. stated she wants to return back to [place] the park. Year-round shelters: [facility] [address] [place] [place] [address] ; [facility] [address] [place] [address]; [facility] [id number] [facility]. [facility] [address] Winter Shelters: SPA 2 | [facility] Address: Confidential (call for location ) Population Served: Coed # of Beds: 57 SPA 4 | [facility] Provider: [facility] Address: [address] [place] [address], [address] # of Beds: 49 Population Served: Coed SPA 6 | [facility] Provider: [facility] Address: [address] [place] [address] # of Beds: 49 Population Served: Coed [facility] Jail Provider: Félix Sousa PRD Address: [address] [place] [address] # of Beds: 20 Population Served: Women MILAN Facility Provider: [facility] Address: [address] [facility] [address] # of Beds: 30 Population Served: Women SPA 8 | [facility] Provider: Marcelle trotter Katelyn Address: [address] [facility] [address] # of Beds: 65 Population Served: Coed Hygiene: [facility]: [address] [place] ; [facility] [address] [facility] ; [facility] [address] [facility] [place] . Food Resources: [facility] at [facility]- [address] [facility]; Meet Each Need with [facility] ([facility]) [address] [facility]; [facility] [address] [facility]; [facility] [address] [facility]. Mental Health resources provided: [facility] [address] [place], [place] [id number] ; [facility] [address] [facility] [address], [place], [place] [phone] ; Rabia Barton [facility] [address] [address], [place] [id number] ; [facility] [address] [place], [place] [id number] Healthcare Clinics: [facility] [address] [facility], [address] [place]. [place] ; [facility] [address] [place] [address]; [facility] [address] [facility]. [place] [phone] Counseling--Outpatient [facility] [address], [place] [address] (Specializes in in-depth psychotherapy for emotional distress: anxiety, depression, interpersonal conflicts, life transitions, childhood abuse) [facility] [address] [place], [place] [phone] (Assist with solving problem marital difficulties, separation & divorce, aging parents, & grief, chronic & terminal illness) [facility] [address] [place] [address] (Deal with loss & grief, anxiety, marital difficulties) Homebound/Mental Health Services [address] [facility] [address] [place], [place] [id number] (Provide in-home mental services to people who are incapable of leaving their homes) [facility] [address] [place], [place] [phone] [facility] [address] [place], [place] [phone] PSYCHIATRIC OUTPATIENT SERVICES [facility] Partial Hospitalization and Intensive Outpatient Program (Managed Care and [place] Only) [address] [facility] [address] [facility] Partial Hospitalization and Outpatient Program [address] [place], [place] [phone] [facility] [address] [address] [facility]. [address] [place], [place] [address] [facility] Partial Hospitalization and Outpatient Program [address] [place], [place] [phone] "
--- NOTE | 2023-05-10 16:15 | NUR ---
AGILE SCRUM MASTER DISCHARGE NOTE PATIENT AWAKE, ALERT AND ORIENTED X3. PATIENT ON ROOM AIR 02 SAT 97%, NO S/S OF RESPIRATORY DISTRESS NOTED. PATIENT DENIES PAIN. PATIENT INFORMED REGARDING GOING TO [facility] TO CONT. HER CARE. PATIENT VERBALIZED UNDERSTANDING INSTRUCTIONS AND ABLE TO SIGN DISCHARGE FORM, INCLUDING RETURNING [id number] FORM, INCLUDING [place]ONEY IN [place] COUNTED IN FRONT OF PATIENT, METHODS ANALYST DATA PROCESSING, AGILE SCRUM MASTER AND THE TWO COTTON CLASSER. PATIENT AGREED WITH THE AMOUNT OF MONEY THAT SHE HAS. IV LINE REMOVED, CATHETER TIP INTACT AND NO S/S OF INFILTRATION NOTED. PRESSURE DRESSING APPLIED. PICTURES TAKING BEFORE DISCHARGE PER HOSPITAL PROTOCOL. THE RIGHT FOOT WOUND, RASH UPPER BACK AND BILATERAL BUTTOCKS . PATIENT HAD A W/C, CLOTHES AND MONEY IN [place]. PATIENT IS GOING VIA AMBULANCE, ACCOMPANIED BY METHODS ANALYST DATA PROCESSING AND TWO COTTON CLASSER. REPORT GIVEN TO COTTON CLASSER, ALSO I CALLED TO THE FACILITY AND REPORT GIVEN TO GEORGE. B/P 159/76 HR 78 RESPIRATION 18 TEMP 98.7.
== END 2023-05-10 16:20 | DRG 602 ==
LOC: ER 15:39 → MEDSG1 19:20
PROVIDERS: ADMIT Internal Medicine; ATTEND Internal Medicine
PROC: 05HC33Z Insertion of Infusion Device into Left Basilic Vein, Percutaneous Approach (ICD-10-PCS; principal; 2023-05-07)
DX: L03.317 Cellulitis of buttock (principal); G93.41 Metabolic encephalopathy; N17.0 Acute kidney failure with tubular necrosis; Z79.899 Other long term (current) drug therapy; E86.0 Dehydration; Z20.822 Contact with and (suspected) exposure to COVID-19; Z88.2 Allergy status to sulfonamides; Z88.1 Allergy status to other antibiotic agents; Z59.00 Homelessness unspecified; E78.5 Hyperlipidemia, unspecified; I10 Essential (primary) hypertension; Z87.891 Personal history of nicotine dependence; F03.90 Unspecified dementia, unspecified severity, without behavioral disturbance, psychotic disturbance, mood disturbance, and anxiety; L98.9 Disorder of the skin and subcutaneous tissue, unspecified; F29 Unspecified psychosis not due to a substance or known physiological condition; S91.301A Unspecified open wound, right foot, initial encounter; X58.XXXA Exposure to other specified factors, initial encounter; Y92.9 Unspecified place or not applicable; N28.9 Disorder of kidney and ureter, unspecified
CPT/HCPCS: 36415; 80048-TC; 80076-TC; 83735-TC; 84100-TC; 85025-TC; 85652-TC; 86140-TC; 87040-TC; 87081-TC; 97110-TC; 97116-TC; 97530-TC; A4223; C9803; G0378; J0690; J1650; J3490; J7030; J7060

== ENCOUNTER 2024-03-24 14:50 | Inpatient (IN) | payer MEDICARE, OTHER ==
[~2024-03-24] VITALS: Ht 152.4 cm; Wt 63.5 kg
[~2024-03-24 14:50] MED LIST changes: +CEPH500C2 PO
[2024-03-24] MEDS: IV NS 0.9% 1,000 ML BAG IV ONE (15:30)
[2024-03-24] MEDS ORDERED: MAGNESIUM HYDROXIDE 30 ML UDC PO PRN (17:30)
[2024-03-24] MEDS ORDERED: Z GUARD REMEDY 4 OZ OINT TP PRN (17:30)
[2024-03-24] MEDS ORDERED: ONDANSETRON HCL/PF 4 MG/2 ML VIAL IVP PRN (17:30)
[2024-03-24] MEDS ORDERED: ACETAMINOPHEN 325 MG TABLET PO PRN (17:30)
[2024-03-24] MEDS ORDERED: ZOLPIDEM TARTRATE 5 MG TABLET PO PRN (17:30)
[2024-03-24] MEDS ORDERED: MAG HYDROX/AL HYDROX/SIMETH 30 ML UDC PO PRN (17:30)
[2024-03-24] MEDS ORDERED: HYDROCODONE/APAP 5/325MG TABLET PO PRN (17:30)
[2024-03-24 18:18] LABS: ALANINE AMINOTRANSFERASE 14 U/L (12-78); ALBUMIN 3.2 g/dL (3.4-5.0); ALKALINE PHOSPHATASE 123 U/L (46-116); ASPARTATE AMINOTRANSFERASE 26 U/L (15-37); BILIRUBIN,DIRECT 0.1 mg/dL (0.0-0.2); BILIRUBIN,TOTAL 0.3 mg/dL (0.2-1.0); CARBON DIOXIDE 23 mmol/L (21-32); CHLORIDE 109 mmol/L (98-107); CREATININE 1.1 mg/dL (0.6-1.3); GLUCOSE 100 mg/dL (74-106); POTASSIUM 4.3 mmol/L (3.5-5.1); SODIUM SERUM 140 mmol/L (136-145); TOTAL PROTEIN, SERUM 6.9 g/dL (6.4-8.2); UREA NITROGEN, BLOOD 29 mg/dL (7-18)
[2024-03-24 19:58] LABS: BASOPHILS # (AUTO) 0.2 K/uL (0.0-0.2); BASOPHILS % (AUTO) 1.3 % (0.0-2.0); EOSINOPHILS # (AUTO) 0.4 K/uL (0.0-0.7); HEMATOCRIT 37 % (33-45); HEMOGLOBIN 11.8 g/dL (11.5-14.8); LYMPHOCYTES # (AUTO) 1.7 K/uL (0.8-4.8); LYMPHOCYTES % (AUTO) 14.1 % (20.0-44.0); MEAN CORPUSCULAR HEMOGLOBIN 28 PG (26.0-33.0); MEAN CORPUSCULAR HGB CONC 32 g/dl (31.0-36.0); MEAN CORPUSCULAR VOLUME 86 fL (82-100); MONOCYTES # (AUTO) 0.8 K/uL (0.1-1.30); MONOCYTES % (AUTO) 6.4 % (2.0-12.0); NEUTROPHILS # (AUTO) 8.9 K/uL (1.8-8.9); NEUTROPHILS % (AUTO) 75.2 % (43.0-81.0); PLATELET COUNT (AUTO) 262 K/uL (150-450); RED BLOOD CELL COUNT(AUTO) 4.27 MIL/uL (4.0-5.2); RED CELL DISTRIBUTION WIDTH 15.3 % (11.5-15.0); WHITE BLOOD COUNT (AUTO) 11.8 K/uL (4.3-11.0)
[2024-03-24] MEDS: ENOXAPARIN SODIUM 30 MG/0.3 ML DISP.SYRIN SQ SCH (21:00)
[2024-03-24] MEDS: IV D5/0.45 NACL 1,000 ML IV PRN (21:55)
[2024-03-24 22:00] VITALS: BP 124/84; TEMP 98.1; O2SAT 100
[2024-03-25] MEDS: PANTOPRAZOLE 40 MG TABLET.DR PO SCH (07:30)
[2024-03-25 16:00] VITALS: BP 131/62; TEMP 98.8; O2SAT 97
[2024-03-26 07:00] VITALS: BP 165/70; TEMP 98.6; O2SAT 98
[2024-03-26 16:00] VITALS: BP 143/84; TEMP 98.7; O2SAT 98
[2024-03-26 21:37] VITALS: BP 162/68; TEMP 99.3; O2SAT 96
[2024-03-27 08:00] VITALS: BP 157/89; TEMP 99; O2SAT 97
[2024-03-27] MEDS: CLOTRIMAZOLE 1% 15 GM TUBE TP SCH (11:21)
[2024-03-27] MEDS ORDERED: CLOT15CR35 TP (16:00)
[2024-03-27] MEDS ORDERED: ACET325T53 PO (16:00)
[2024-03-27] MEDS ORDERED: HYDR-4303 PO (16:00)
[2024-03-27] MEDS ORDERED: ALLA266C2 TP (16:00)
== END 2024-03-27 14:26 | DRG 641 ==
LOC: ER 14:51 → MED 19:32
DX: R62.7 Adult failure to thrive (principal); Z59.00 Homelessness unspecified; E78.5 Hyperlipidemia, unspecified; I10 Essential (primary) hypertension; F29 Unspecified psychosis not due to a substance or known physiological condition; L98.9 Disorder of the skin and subcutaneous tissue, unspecified; Z88.1 Allergy status to other antibiotic agents; Z88.3 Allergy status to other anti-infective agents; Z88.2 Allergy status to sulfonamides; G31.84 Mild cognitive impairment of uncertain or unknown etiology; Z87.891 Personal history of nicotine dependence
CPT/HCPCS: 36415; 80048-TC; 80076-TC; 84484-TC; 85025-TC; 97110-TC; 97116-TC; 97530-TC; A4223; G0378; J1650; J3490; J7030

== ENCOUNTER 2024-03-27 15:23 | Inpatient (IN) | payer MEDICARE, OTHER ==
[~2024-03-27] VITALS: Ht 157.5 cm; Wt 61.2 kg
[2024-03-27] MEDS ORDERED: TEMAZEPAM 7.5 MG CAPSULE PO PRN (15:30)
[2024-03-27] MEDS ORDERED: ACETAMINOPHEN 325 MG TABLET PO PRN (15:30)
[2024-03-27] MEDS ORDERED: MAG HYDROX/AL HYDROX/SIMETH 30 ML UDC PO PRN (15:30)
[2024-03-27] MEDS ORDERED: clonazePAM 0.5 MG TABLET PO PRN (15:30)
[2024-03-27] MEDS ORDERED: MAGNESIUM HYDROXIDE 30 ML UDC PO PRN (15:30)
[2024-03-27 15:55] VITALS: BP 154/75; TEMP 98.6; O2SAT 98
[2024-03-27 16:00] VITALS: BP 154/75; TEMP 98.6; O2SAT 98
[2024-03-27] MEDS ORDERED: CLOT15CR35 TP (16:00)
[2024-03-27] MEDS ORDERED: ACET325T53 PO (16:00)
[2024-03-27] MEDS ORDERED: HYDR-4303 PO (16:00)
[2024-03-27] MEDS ORDERED: PANT40TA49 PO (16:00)
[2024-03-27] MEDS ORDERED: ALLA266C2 TP (16:00)
[2024-03-27] MEDS: BLOOD SUGAR DIAGNOSTIC 1 EACH STRIP IN ONE (16:15)
[2024-03-27] MEDS: VITAMINS A AND D 56.7 GM TUBE TP SCH (17:30)
[2024-03-27 20:00] VITALS: BP 137/71; TEMP 98; O2SAT 95
[2024-03-27] MEDS ORDERED: HYDROCODONE/APAP 5/325MG TABLET PO PRN (21:30)
[2024-03-28] MEDS: PANTOPRAZOLE 40 MG TABLET.DR PO SCH (07:30)
[2024-03-28 08:00] VITALS: BP 144/59; TEMP 97.7; O2SAT 95
[2024-03-28] MEDS: ESCITALOPRAM OXALATE (10 MG) 10 MG TABLET PO SCH (09:00)
[2024-03-28] MEDS: QUETIAPINE FUMARATE 25 MG TABLET PO SCH (09:00)
[2024-03-28] MEDS: CLOTRIMAZOLE 1% 15 GM TUBE TP SCH (09:00)
[2024-03-28 16:00] VITALS: BP 160/74; TEMP 97.5; O2SAT 96
[2024-03-28 20:00] VITALS: BP 141/53; TEMP 97.6; O2SAT 96
[2024-03-29 08:00] VITALS: BP 153/66; TEMP 97.6; O2SAT 95
[2024-03-29] MEDS: ENSURE ENLIVE 237 ML LIQUID (VANILLA) PO SCH (08:31)
[2024-03-29 16:00] VITALS: BP 138/64; TEMP 97.6; O2SAT 97
[2024-03-29 20:40] VITALS: BP 130/65; TEMP 97.9; O2SAT 97
[2024-03-30 08:00] VITALS: BP 130/68; TEMP 98.1; O2SAT 97
[2024-03-30 16:00] VITALS: BP 130/59; TEMP 98.7; O2SAT 96
[2024-03-30 21:01] VITALS: BP 148/56; TEMP 98.1; O2SAT 96
[2024-03-31 08:00] VITALS: BP 150/69; TEMP 98.7; O2SAT 97
[2024-03-31 16:00] VITALS: BP 134/68; TEMP 98.7; O2SAT 98
[2024-03-31 21:26] VITALS: BP 132/51; TEMP 98; O2SAT 98
[2024-04-01 08:00] VITALS: BP 150/59; TEMP 98.7; O2SAT 100
[2024-04-01 16:00] VITALS: BP 142/56; TEMP 98.7; O2SAT 96
[2024-04-02 08:00] VITALS: BP 119/67; TEMP 97.7; O2SAT 96
[2024-04-02 16:51] VITALS: BP 160/65; TEMP 98.1; O2SAT 96
[2024-04-02] MEDS: HALOPERIDOL 5 MG TABLET PO SCH (17:00)
[2024-04-02] MEDS: HALOPERIDOL LACTATE INJ 5 MG/ML VIAL IM PRN (17:26)
[2024-04-02 20:00] VITALS: BP 167/52; TEMP 98; O2SAT 95
[2024-04-03 08:00] VITALS: BP 145/70; TEMP 98.7; O2SAT 96
[2024-04-03 16:00] VITALS: BP 118/60; TEMP 98; O2SAT 96
[2024-04-03 20:00] VITALS: BP 153/52; TEMP 98.8; O2SAT 98
[2024-04-04 08:00] VITALS: BP 139/73; TEMP 98.5; O2SAT 97
[2024-04-04 16:00] VITALS: BP 125/60; TEMP 97.5; O2SAT 94
[2024-04-04 20:00] VITALS: BP 174/52; TEMP 98.4; O2SAT 99
[2024-04-04 20:30] VITALS: BP 135/55; O2SAT 99
[2024-04-04] MEDS: ACETAMINOPHEN 325 MG TABLET PO PRN (21:04)
[2024-04-05 08:00] VITALS: BP 131/62; TEMP 97.5; O2SAT 96
[2024-04-05 16:00] VITALS: BP 148/66; TEMP 97.7; O2SAT 97
[2024-04-05 20:00] VITALS: BP 153/60; TEMP 97.9; O2SAT 96
[2024-04-06 08:00] VITALS: BP 150/55; TEMP 98.1; O2SAT 98
[2024-04-06] MEDS: HALOPERIDOL DECANOATE IM 100 MG/ML AMPUL IM ONE (13:44)
[2024-04-06] MEDS: diphenhydrAMINE HCL 50 MG/ML VIAL IM ONE (13:44)
[2024-04-06] MEDS ORDERED: diphenhydrAMINE HCL 50 MG/ML VIAL IV PRN (14:00)
[2024-04-06 16:00] VITALS: BP 118/60; TEMP 97.9; O2SAT 97
[2024-04-06 21:11] VITALS: BP 138/57; TEMP 98; O2SAT 96
[2024-04-07 08:00] VITALS: BP 98/64; TEMP 97.8; O2SAT 98
[2024-04-07 16:00] VITALS: BP 153/62; TEMP 98; O2SAT 95
[2024-04-07 20:50] VITALS: BP 132/45; TEMP 97.9; O2SAT 97
[2024-04-08 08:00] VITALS: BP 143/68; TEMP 98.7; O2SAT 98
[2024-04-08 16:00] VITALS: BP 150/57; TEMP 97.9; O2SAT 97
[2024-04-08 20:37] VITALS: BP 155/60; TEMP 98.2; O2SAT 96
[2024-04-08 22:10] VITALS: BP 142/68; TEMP 98.9; O2SAT 97
[2024-04-09 08:00] VITALS: BP 116/64; TEMP 98.7; O2SAT 95
[2024-04-09 16:00] VITALS: BP 125/67; TEMP 98; O2SAT 96
[2024-04-09 20:00] VITALS: BP 115/65; TEMP 97.8; O2SAT 96
[2024-04-10 08:00] VITALS: BP 157/52; TEMP 98.7; O2SAT 98
[2024-04-10 11:20] LABS: CALCIUM, SERUM 8.9 mg/dL (8.5-10.1); CREATININE 1.2 mg/dL (0.6-1.3); POTASSIUM 4.1 mmol/L (3.5-5.1)
[2024-04-10 16:00] VITALS: BP 123/55; TEMP 97.5; O2SAT 98
[2024-04-10 20:00] VITALS: BP 148/46; TEMP 98; O2SAT 95
[2024-04-11 08:00] VITALS: BP 134/51; TEMP 97.7; O2SAT 93
[2024-04-11] MEDS: HALOPERIDOL 5 MG TABLET PO SCH (13:00)
[2024-04-11] MEDS: HALOPERIDOL LACTATE INJ 5 MG/ML VIAL IM PRN (13:42)
[2024-04-11 16:00] VITALS: BP 148/51; TEMP 97.4; O2SAT 94
[2024-04-11 20:00] VITALS: BP 137/55; TEMP 98.4; O2SAT 97
[2024-04-12 08:00] VITALS: BP 133/50; TEMP 98.1; O2SAT 95
[2024-04-12 16:00] VITALS: BP 130/57; TEMP 97.9; O2SAT 95
[2024-04-12 20:34] VITALS: BP 143/56; TEMP 98; O2SAT 94
[2024-04-13 08:00] VITALS: BP_SYST 117; BP_SYST 135; BP_DIAS 47; BP_DIAS 60; TEMP 97.7; TEMP 97.9; O2SAT 93; O2SAT 99
== END 2024-04-13 13:30 | DRG 885 ==
LOC: GPS 15:23
PROVIDERS: ADMIT Nurse Practitioner Psychiatric/Mental Health; ATTEND Internal Medicine
DX: F25.1 Schizoaffective disorder, depressive type (principal); Z59.00 Homelessness unspecified; E78.5 Hyperlipidemia, unspecified; I10 Essential (primary) hypertension; R62.7 Adult failure to thrive; Z20.822 Contact with and (suspected) exposure to COVID-19; Z79.899 Other long term (current) drug therapy; Z73.6 Limitation of activities due to disability; Z91.199 Patient's noncompliance with other medical treatment and regimen due to unspecified reason; R53.1 Weakness; L85.3 Xerosis cutis; Z60.8 Other problems related to social environment; H54.7 Unspecified visual loss; Z87.891 Personal history of nicotine dependence; Z88.1 Allergy status to other antibiotic agents; Z88.2 Allergy status to sulfonamides; Z88.3 Allergy status to other anti-infective agents
CPT/HCPCS: 36415; 80048-TC; 92526; 92611-TC; 97112-TC; 97116-TC; 97530-TC; J1200; J1630; J1631